=== PATIENT | male | born 1990 | race Caucasian/White ===

== ENCOUNTER 2018-09-20 17:48 | Emergency (ER) | payer MEDICAID ==
[~2018-09-20] VITALS: Ht 180.3 cm; Wt 52.3 kg
[2018-09-20] MEDS ORDERED: phenylephrine 1% (X-tra strg) 15ml nasal spray NS ONE (18:35)
[2018-09-20] MEDS ORDERED: CEPH500C5 PO (18:54)
[2018-09-20] MEDS ORDERED: cephalexin 500mg capsule PO ONE (18:55)
--- NOTE | 2018-09-20 19:20 | NUR ---
Rhino Rocket 5.[address] to right nare, pt continues with some bleeding into his oropharanx and with some nausea. Pt instructed to return in 3 days for removing packing. given 1st dose keflex prior to dc.
[2018-09-20 19:23] VITALS: BP 122/58
== END 2018-09-20 19:25 | disposition home or self-care (01) ==
LOC: ER 17:49
DX: R04.0 Epistaxis (principal); F17.200 Nicotine dependence, unspecified, uncomplicated; Z98.890 Other specified postprocedural states; Z88.2 Allergy status to sulfonamides; Z79.2 Long term (current) use of antibiotics
CPT/HCPCS: 30901; 99284

== ENCOUNTER 2018-09-23 08:04 | Emergency (ER) | payer MEDICAID, OTHER ==
[~2018-09-23] VITALS: Ht 180.3 cm; Wt 55.0 kg
[~2018-09-23 08:04] MED LIST: CEPH500C5 PO
--- NOTE | 2018-09-23 08:20 | NUR ---
PACKING REMOVED, PT INSTRUCTED TO BLOW NOSE GENTLY, INSTRUCTED TO STAY OUT OF THE SUN, REST TODAY AND CUT BACK ON CIGARETTE SMOKING-VERBALZIES UNDERSTANDING
[2018-09-23 08:22] VITALS: BP 154/52
--- NOTE | 2018-09-23 08:26 | NUR ---
NO ABNORMAL BLEEDING OR BLOOD ON KLEENEX AFTER PT CLEANSES/BLOWS NOSE- IN NO ACUTE DISTRESS AT THIS TIME.
== END 2018-09-23 08:27 | disposition home or self-care (01) ==
LOC: ER 08:05
DX: R04.0 Epistaxis (principal); K92.1 Melena; Z48.00 Encounter for change or removal of nonsurgical wound dressing; Z98.890 Other specified postprocedural states; Z88.2 Allergy status to sulfonamides; Z79.2 Long term (current) use of antibiotics
CPT/HCPCS: 99281

== ENCOUNTER 2018-10-10 13:58 | Inpatient (IN) | payer MEDICAID, OTHER ==
[~2018-10-10] VITALS: Ht 180.3 cm; Wt 55.8 kg
[2018-10-10 15:03] LABS: BASOPHILS % (AUTO) 0.2 % (0-1); EOSINOPHILS % (AUTO) 0 % (0-6); HEMATOCRIT 48.1 % (42.0-52.0); HEMOGLOBIN 16.8 g/dl (14.0-17.9); LYMPHOCYTES # (AUTO) 0.7 X10'3 (1.1-4.8); LYMPHOCYTES % (AUTO) 3.4 % (21-51); MEAN CORPUSCULAR HGB CONC 34.9 g/dL (33.0-36.5); MEAN CORPUSCULAR VOLUME 103.2 FL (78-98); MEAN PLATELET VOLUME 6.8 FL (7.4-10.4); MONOCYTES # (AUTO) 0.9 X10'3 (0-0.9); MONOCYTES % (AUTO) 4.9 % (2-12); NEUTROPHILS # (AUTO) 17.4 X10'3 (1.8-7.7); NEUTROPHILS % (AUTO) 91.5 % (42-75); PLATELET COUNT 340 X10'3 (140-440); RED BLOOD COUNT 4.66 X10'6 (4.70-6.10); RED CELL DISTRIBUTION WIDTH 14.5 % (11.5-14.5)
[2018-10-10 15:14] LABS: ALANINE AMINOTRANSFERASE 51 U/L (12-78); ALBUMIN 3.7 G/DL (3.4-5.0); ALBUMIN/GLOBULIN RATIO 1.1 (1.1-1.5); ALKALINE PHOSPHATASE 101 IU/L (46-116); AMYLASE 326 U/L (25-115); ANION GAP 16 (8-16); ASPARTATE AMINO TRANSFERASE 52 U/L (10-37); BILIRUBIN,TOTAL 1.1 MG/DL (0.1-1.0); BLOOD UREA NITROGEN 10 MG/DL (7-18); BUN/CREATININE RATIO 7.6 (5.4-32.0); CALCIUM 8.6 MG/DL (8.5-10.1); CHLORIDE 101 MMOL/L (99-107); CREATININE 1.32 MG/DL (0.60-1.10); GLUCOSE 194 MG/DL (70-104); SODIUM 138 MMOL/L (135-145); TOTAL PROTEIN 7.1 G/DL (6.4-8.2); eGFR 65 ML/MIN
[2018-10-10 15:21] LABS: LIPASE 6596 U/L (73-393)
[2018-10-10] MEDS ORDERED: normal saline 1000ML IV soln IVB ONE ×2 (15:25→16:40)
[2018-10-10] MEDS ORDERED: morphine 4 MG/ML inj SYRINge IV ONE (15:25)
[2018-10-10] MEDS ORDERED: ondansetron/PF 4mg/2ml inj IV ONE (15:30)
[2018-10-10] MEDS ORDERED: OMEP10CA5 PO (16:33)
[2018-10-10] MEDS ORDERED: morphine 10mg/ml inj. IV ONE (16:40)
--- NOTE | 2018-10-10 17:02 | NUR ---
PATIENT UNABLE TO PROVIDE URINE SAMPLE AT THIS TIME.
[2018-10-10] MEDS ORDERED: magnesium Cl slow-release 64mg tablet PO PRN (17:10)
[2018-10-10] MEDS ORDERED: magnesium 4gm in 100ml NS 100 ML IV PRN (17:10)
[2018-10-10] MEDS ORDERED: morphine 2 MG/ML inj. syringe IV PRN (17:10)
[2018-10-10] MEDS ORDERED: potassium CL 10mEq/100ml bag 100 ML IV PRN ×2 (17:10)
[2018-10-10] MEDS ORDERED: magnesium 2GM in 50ml NS 50 ML IV PRN (17:10)
[2018-10-10] MEDS ORDERED: potassium Cl 20 mEq SR tablet PO PRN ×2 (17:10)
[2018-10-10] MEDS: K and/or MAG REPLACEMENT MC SCH (17:10)
[2018-10-10 17:44] LABS: CLARITY,URINE SLIGHTLY CLOUDY (Clear); COLOR,URINE AMBER (Yellow); GLUCOSE, URINE NEGATIVE (Neg); KETONES,URINE 15 mg/dl (Neg); LEUKOCYTE ESTERASE ,URINE NEGATIVE (Neg); OCCULT BLOOD,URINE NEGATIVE (Neg); PH,URINE 6.5 (4.8-8.0); PROTEIN,URINE 100 mg/dl (Neg); UA COLLECTION TYPE URINAL
[2018-10-10 17:45] LABS: NITRITES, URINE NEGATIVE (Neg)
[2018-10-10] MEDS ORDERED: ketorolac tromethamine 15mg/ml inj. IV ONE (17:45)
[2018-10-10 17:51] LABS: HYALINE CASTS 0-3 /LPF (NEGATIVE); MUCUS STRANDS MANY /LPF (Neg); SQUAMOUS EPITHELIAL CELL,UR FEW /LPF (FEW)
[2018-10-10 17:53] LABS: BACTERIA,URINE NONE SEEN /HPF (Neg); RBC,URINE 0-2 /HPF (0-2); RENAL CELLS, URINE FEW /HPF; WBC,URINE 0-4 /HPF (0-4)
[2018-10-10] MEDS ORDERED: NO HOME MEDS (17:55)
[2018-10-10] MEDS: normal saline 1000ml 1,000 ML IV SCH (18:12)
--- NOTE | 2018-10-10 18:42 | NUR ---
Patient in ER . I have received report from Rainer VALENCIA in ER and had the opportunity to ask questions and assume patient care when patient arrives to floor.
[2018-10-10 18:50] VITALS: BP 147/108
--- NOTE | 2018-10-10 19:56 | NUR ---
Pt reports he drinks 4 "16 oz Kael's Hard" per day. Last drink was yesterday. Will monitor closely for withdrawal symptoms of alcohol.
[2018-10-10] MEDS ORDERED: LORazepam 2 mg/ml vial IV PRN (23:00)
[2018-10-10] MEDS ORDERED: haloperidol lactate 5mg/ml inj IM PRN (23:00)
--- NOTE | 2018-10-10 23:00 | NUR ---
2 RN skin check was performed with Aubret Addendum: 10/13/18 at 0641 by Eduardo Narayan RN Evans VALENCIA. However, RN was not able to sign intervention. No skin issues were found on admit.
--- NOTE | 2018-10-10 23:05 | NUR ---
Aleksandra MOURA made aware of pt HR in 150s, and BP of 163/117, as well as out of control pain. Morphine increased and pt placed on alcohol withdrawal protocol, mild. Will continue to monitor patient vitals and pain level. Addendum: 10/10/18 at 2327 by Eduardo Narayan RN These vitals taken shortly after pt returned from bathroom. Will recheck vitals when pt has had a chance to rest for a short while.
[2018-10-10] MEDS: morphine 2 MG/ML inj. syringe IV PRN (23:17)
[2018-10-10 23:56] VITALS: BP 163/117
[2018-10-11 00:19] VITALS: BP 144/116
[2018-10-11] MEDS ORDERED: morphine/NS 5 mg/ml CADD 50 ML IV SCH (00:48)
[2018-10-11] MEDS ORDERED: CADD PCA waste documentation MC PRN (00:50)
[2018-10-11] MEDS ORDERED: naloxone 0.4 mg/ml inj IV PRN (00:50)
[2018-10-11] MEDS: morphine 2 MG/ML inj. syringe IV PRN (01:14)
[2018-10-11] MEDS: morphine/NS 5 mg/ml CADD 50 ML IV SCH ×12 (01:58→22:52)
[2018-10-11] MEDS: normal saline 1000ml 1,000 ML IV SCH ×3 (03:18→16:51)
[2018-10-11 05:39] LABS: BASOPHILS % (AUTO) 0.2 % (0-1); EOSINOPHILS % (AUTO) 0 % (0-6); HEMATOCRIT 46.4 % (42.0-52.0); HEMOGLOBIN 16.4 g/dl (14.0-17.9); LYMPHOCYTES # (AUTO) 1.2 X10'3 (1.1-4.8); LYMPHOCYTES % (AUTO) 9.8 % (21-51); MEAN CORPUSCULAR HGB CONC 35.3 g/dL (33.0-36.5); MEAN PLATELET VOLUME 7.8 FL (7.4-10.4); MONOCYTES # (AUTO) 0.6 X10'3 (0-0.9); MONOCYTES % (AUTO) 4.9 % (2-12); NEUTROPHILS % (AUTO) 85.1 % (42-75); PLATELET COUNT 222 X10'3 (140-440); RED BLOOD COUNT 4.42 X10'6 (4.70-6.10); RED CELL DISTRIBUTION WIDTH 14.7 % (11.5-14.5); WHITE BLOOD COUNT 11.8 X10'3 (4.5-11.0)
[2018-10-11 05:56] LABS: ALANINE AMINOTRANSFERASE 34 U/L (12-78); ALBUMIN 2.5 G/DL (3.4-5.0); ALBUMIN/GLOBULIN RATIO 0.8 (1.1-1.5); ALKALINE PHOSPHATASE 70 IU/L (46-116); AMYLASE 264 U/L (25-115); ANION GAP 11 (8-16); ASPARTATE AMINO TRANSFERASE 36 U/L (10-37); BLOOD UREA NITROGEN 12 MG/DL (7-18); BUN/CREATININE RATIO 12.6 (5.4-32.0); CALCIUM 6.9 MG/DL (8.5-10.1); CHLORIDE 110 MMOL/L (99-107); CREATININE 0.95 MG/DL (0.60-1.10); GLUCOSE 133 MG/DL (70-104); MAGNESIUM 1.2 MG/DL (1.5-2.4); PHOSPHORUS 2.9 MG/DL (2.3-4.5); POTASSIUM 3.6 MMOL/L (3.5-5.1); SODIUM 143 MMOL/L (135-145); TOTAL CARBON DIOXIDE 21.7 MMOL/L (24-32); TOTAL PROTEIN 5.5 G/DL (6.4-8.2); eGFR > 90 ML/MIN
--- NOTE | 2018-10-11 06:30 | NUR ---
Patient in room [facility]. I have received report from Rafael VALENCIA and had the opportunity to ask questions and assume patient care.
--- NOTE | 2018-10-11 06:40 | NUR ---
Problems reprioritized. Patient report given, questions answered & plan of care reviewed with Higinio RN.
[2018-10-11 07:00] VITALS: BP 150/111
[2018-10-11 07:00] LABS: LIPASE 5298 U/L (73-393)
[2018-10-11] MEDS: K and/or MAG REPLACEMENT MC SCH (08:00)
[2018-10-11] MEDS: MVI, adult No.4 with vit. K 10 ML in dextrose 5% water 500ml 500 ML IV SCH ×2 (08:04)
[2018-10-11 11:00] VITALS: BP 127/94
--- NOTE | 2018-10-11 11:25 | NUR ---
Pt with low BMI of 17.2 however no documented method of how current wt of 56 kg was obtained. Per past documented weights pt 52.27 kg 09/20/18 using standing scale and 55 kg 09/23/18 using chair scale. Pt with no edema or significant decrease in muscle strength, currently NPO. Per H&P pt appears well developed. No malnutrition at this time. Will continue to follow. Addendum: 10/11/18 at [address] Amended: Links added.
[2018-10-11] MEDS: WATER IV SCH (13:18)
[2018-10-11] MEDS: THIAMINE IV SCH (13:18)
[2018-10-11] MEDS: FOLIC ACID IV SCH (13:18)
[2018-10-11] MEDS: DEXTROSE 5% IV SCH (13:18)
--- NOTE | 2018-10-11 18:30 | NUR ---
Problems reprioritized. Patient report given, questions answered & plan of care reviewed with Rafael VALENCIA.
--- NOTE | 2018-10-11 18:30 | NUR ---
Patient in room [facility]. I have received report from Higinio VALENCIA and had the opportunity to ask questions and assume patient care.
[2018-10-11 19:00] VITALS: BP 157/107
[2018-10-12] VITALS: BP 156/111
[2018-10-12] MEDS: morphine/NS 5 mg/ml CADD 50 ML IV SCH ×12 (00:49→22:38)
[2018-10-12 05:56] LABS: BASOPHILS % (AUTO) 0.1 % (0-1); EOSINOPHILS % (AUTO) 0.3 % (0-6); HEMATOCRIT 40.1 % (42.0-52.0); HEMOGLOBIN 13.8 g/dl (14.0-17.9); LYMPHOCYTES # (AUTO) 1.2 X10'3 (1.1-4.8); LYMPHOCYTES % (AUTO) 10.8 % (21-51); MEAN CORPUSCULAR HEMOGLOBIN 36.8 PG (27.0-31.0); MEAN CORPUSCULAR HGB CONC 34.5 g/dL (33.0-36.5); MEAN CORPUSCULAR VOLUME 106.8 FL (78-98); MEAN PLATELET VOLUME 7.7 FL (7.4-10.4); MONOCYTES # (AUTO) 0.6 X10'3 (0-0.9); MONOCYTES % (AUTO) 5.8 % (2-12); NEUTROPHILS # (AUTO) 9.1 X10'3 (1.8-7.7); PLATELET COUNT 168 X10'3 (140-440); RED BLOOD COUNT 3.76 X10'6 (4.70-6.10); RED CELL DISTRIBUTION WIDTH 14.3 % (11.5-14.5); WHITE BLOOD COUNT 10.9 X10'3 (4.5-11.0)
--- NOTE | 2018-10-12 06:24 | NUR ---
Problems reprioritized. Patient report given, questions answered & plan of care reviewed with Yohannes VALENCIA.
[2018-10-12 06:29] LABS: ALANINE AMINOTRANSFERASE 23 U/L (12-78); ALBUMIN 2.1 G/DL (3.4-5.0); ALBUMIN/GLOBULIN RATIO 0.6 (1.1-1.5); ALKALINE PHOSPHATASE 58 IU/L (46-116); AMYLASE 152 U/L (25-115); ANION GAP 8 (8-16); ASPARTATE AMINO TRANSFERASE 29 U/L (10-37); BILIRUBIN,TOTAL 0.6 MG/DL (0.1-1.0); BLOOD UREA NITROGEN 13 MG/DL (7-18); BUN/CREATININE RATIO 15.9 (5.4-32.0); CALCIUM 7.1 MG/DL (8.5-10.1); CHLORIDE 108 MMOL/L (99-107); CREATININE 0.82 MG/DL (0.60-1.10); GLUCOSE 98 MG/DL (70-104); MAGNESIUM 3.1 MG/DL (1.5-2.4); PHOSPHORUS 2.4 MG/DL (2.3-4.5); POTASSIUM 4.3 MMOL/L (3.5-5.1); SODIUM 139 MMOL/L (135-145); TOTAL CARBON DIOXIDE 22.7 MMOL/L (24-32); TOTAL PROTEIN 5.5 G/DL (6.4-8.2); eGFR > 90 ML/MIN
--- NOTE | 2018-10-12 06:39 | NUR ---
Patient in room [facility]. I have received report from Rafael VALENCIA and had the opportunity to ask questions and assume patient care.
[2018-10-12 07:01] LABS: LIPASE 2451 U/L (73-393)
[2018-10-12] MEDS: WATER IV SCH (07:05)
[2018-10-12] MEDS: FOLIC ACID IV SCH (07:05)
[2018-10-12] MEDS: DEXTROSE 5% IV SCH (07:05)
[2018-10-12] MEDS: THIAMINE IV SCH (07:05)
[2018-10-12 07:14] VITALS: BP 141/96
[2018-10-12] MEDS: MVI, adult No.4 with vit. K 10 ML in dextrose 5% water 500ml 500 ML IV SCH ×2 (07:51)
[2018-10-12] MEDS: K and/or MAG REPLACEMENT MC SCH (08:00)
[2018-10-12] MEDS: normal saline 1000ml 1,000 ML IV SCH ×2 (09:10→18:25)
[2018-10-12 11:36] VITALS: BP 145/101
[2018-10-12 18:00] VITALS: BP 145/94
--- NOTE | 2018-10-12 18:20 | NUR ---
Patient in room [facility]. I have received report from Higinio VALENCIA and had the opportunity to ask questions and assume patient care.
[2018-10-12 23:39] VITALS: BP 146/100
[2018-10-13] MEDS: morphine/NS 5 mg/ml CADD 50 ML IV SCH ×9 (01:00→17:00)
[2018-10-13] MEDS: normal saline 1000ml 1,000 ML IV SCH (03:36)
[2018-10-13 06:08] LABS: BASOPHILS % (AUTO) 0.3 % (0-1); EOSINOPHILS # (AUTO) 0.1 X10'3 (0-0.9); EOSINOPHILS % (AUTO) 0.6 % (0-6); HEMATOCRIT 35.4 % (42.0-52.0); LYMPHOCYTES # (AUTO) 0.9 X10'3 (1.1-4.8); LYMPHOCYTES % (AUTO) 10.7 % (21-51); MEAN CORPUSCULAR HEMOGLOBIN 36.6 PG (27.0-31.0); MEAN CORPUSCULAR VOLUME 107.5 FL (78-98); MEAN PLATELET VOLUME 7.6 FL (7.4-10.4); MONOCYTES # (AUTO) 0.8 X10'3 (0-0.9); MONOCYTES % (AUTO) 9.7 % (2-12); NEUTROPHILS # (AUTO) 6.4 X10'3 (1.8-7.7); NEUTROPHILS % (AUTO) 78.7 % (42-75); PLATELET COUNT 157 X10'3 (140-440); RED CELL DISTRIBUTION WIDTH 14.7 % (11.5-14.5); WHITE BLOOD COUNT 8.1 X10'3 (4.5-11.0)
--- NOTE | 2018-10-13 06:16 | NUR ---
Patient in room [facility]. I have received report from ERIK Hall and had the opportunity to ask questions and assume patient care.
--- NOTE | 2018-10-13 06:16 | NUR ---
Problems reprioritized. Patient report given, questions answered & plan of care reviewed with Sandra RN.
[2018-10-13 06:39] LABS: ALANINE AMINOTRANSFERASE 21 U/L (12-78); ALBUMIN 1.8 G/DL (3.4-5.0); ALBUMIN/GLOBULIN RATIO 0.5 (1.1-1.5); ALKALINE PHOSPHATASE 63 IU/L (46-116); AMYLASE 84 U/L (25-115); ANION GAP 11 (8-16); ASPARTATE AMINO TRANSFERASE 31 U/L (10-37); BILIRUBIN,TOTAL 0.7 MG/DL (0.1-1.0); BLOOD UREA NITROGEN 7 MG/DL (7-18); BUN/CREATININE RATIO 10.9 (5.4-32.0); CALCIUM 7.5 MG/DL (8.5-10.1); CHLORIDE 105 MMOL/L (99-107); CREATININE 0.64 MG/DL (0.60-1.10); GLUCOSE 62 MG/DL (70-104); LIPASE 825 U/L (73-393); PHOSPHORUS 2.3 MG/DL (2.3-4.5); POTASSIUM 3.6 MMOL/L (3.5-5.1); SODIUM 139 MMOL/L (135-145); TOTAL CARBON DIOXIDE 22.9 MMOL/L (24-32); TOTAL PROTEIN 5.3 G/DL (6.4-8.2); eGFR > 90 ML/MIN
[2018-10-13] MEDS: WATER IV SCH (07:17)
[2018-10-13] MEDS: THIAMINE IV SCH (07:17)
[2018-10-13] MEDS: DEXTROSE 5% IV SCH (07:17)
[2018-10-13] MEDS: FOLIC ACID IV SCH (07:17)
[2018-10-13] MEDS: K and/or MAG REPLACEMENT MC SCH (07:24)
[2018-10-13] MEDS ORDERED: dextrose 50%-water 50ml dispensing syringe IV ONE (07:25)
[2018-10-13] MEDS: dextrose 5%-normal saline 1,000 ML IV SCH ×2 (07:59→17:03)
[2018-10-13 08:00] VITALS: BP 154/104
[2018-10-13] MEDS: MVI, adult No.4 with vit. K 10 ML in dextrose 5% water 500ml 500 ML IV SCH ×2 (08:03)
[2018-10-13 12:00] VITALS: BP 152/104
--- NOTE | 2018-10-13 18:07 | NUR ---
Problems reprioritized. Patient report given, questions answered & plan of care reviewed with ERIK Nayak.
--- NOTE | 2018-10-13 18:49 | NUR ---
Patient in room [facility]. I have received report from BERNY VALENCIA and had the opportunity to ask questions and assume patient care. Addendum: 10/13/18 at 1849 by Malini Noriega RN Amended: Links added.
--- NOTE | 2018-10-13 19:35 | NUR ---
pt medicated for c/o abd pain 07/29 at this time.
[2018-10-13] MEDS: morphine 2 MG/ML inj. syringe IV PRN ×2 (19:40→22:50)
[2018-10-13 20:00] VITALS: BP 148/108
--- NOTE | 2018-10-13 22:52 | NUR ---
pt medicated for pain with 2mg of morphine abd 07/29. at this time.
[2018-10-14] VITALS: BP 156/104
--- NOTE | 2018-10-14 00:40 | NUR ---
pt resting eyes closed no s&s of distress at this time.
--- NOTE | 2018-10-14 02:40 | NUR ---
resting eyes closed without changes.
[2018-10-14] MEDS: dextrose 5%-normal saline 1,000 ML IV SCH ×3 (03:19→17:24)
[2018-10-14] MEDS: morphine 2 MG/ML inj. syringe IV PRN ×5 (03:20→19:15)
--- NOTE | 2018-10-14 03:27 | NUR ---
pt awoke iv fluids changed and medicated for pain with iv morphine at this time.
--- NOTE | 2018-10-14 05:27 | NUR ---
pt awake states "having liquid stool that is now smelling like his throw up",bile like. pt stated he'd love to be able to have a popsicle today.
[2018-10-14 06:08] LABS: BASOPHILS % (AUTO) 0.2 % (0-1); EOSINOPHILS # (AUTO) 0.1 X10'3 (0-0.9); EOSINOPHILS % (AUTO) 0.6 % (0-6); HEMATOCRIT 33.9 % (42.0-52.0); HEMOGLOBIN 11.9 g/dl (14.0-17.9); LYMPHOCYTES # (AUTO) 1.1 X10'3 (1.1-4.8); LYMPHOCYTES % (AUTO) 11.9 % (21-51); MEAN CORPUSCULAR HGB CONC 35.1 g/dL (33.0-36.5); MEAN CORPUSCULAR VOLUME 105.5 FL (78-98); MONOCYTES # (AUTO) 1.7 X10'3 (0-0.9); MONOCYTES % (AUTO) 18.8 % (2-12); NEUTROPHILS # (AUTO) 6.3 X10'3 (1.8-7.7); NEUTROPHILS % (AUTO) 68.5 % (42-75); PLATELET COUNT 193 X10'3 (140-440); RED BLOOD COUNT 3.21 X10'6 (4.70-6.10); RED CELL DISTRIBUTION WIDTH 14.3 % (11.5-14.5); WHITE BLOOD COUNT 9.2 X10'3 (4.5-11.0)
--- NOTE | 2018-10-14 06:18 | NUR ---
Problems reprioritized. Patient report given, questions answered & plan of care reviewed with Sandra Cespedes. Addendum: 10/14/18 at 0619 by Malini Noriega RN Amended: Links added.
[2018-10-14 06:27] LABS: ALANINE AMINOTRANSFERASE 18 U/L (12-78); ALBUMIN 1.8 G/DL (3.4-5.0); ALBUMIN/GLOBULIN RATIO 0.5 (1.1-1.5); ALKALINE PHOSPHATASE 75 IU/L (46-116); AMYLASE 79 U/L (25-115); ANION GAP 9 (8-16); ASPARTATE AMINO TRANSFERASE 22 U/L (10-37); BILIRUBIN,TOTAL 0.6 MG/DL (0.1-1.0); BLOOD UREA NITROGEN 2 MG/DL (7-18); BUN/CREATININE RATIO 4.4 (5.4-32.0); CALCIUM 7.8 MG/DL (8.5-10.1); CHLORIDE 103 MMOL/L (99-107); CREATININE 0.45 MG/DL (0.60-1.10); GLUCOSE 111 MG/DL (70-104); LIPASE 543 U/L (73-393); MAGNESIUM 1.8 MG/DL (1.5-2.4); PHOSPHORUS 2.4 MG/DL (2.3-4.5); SODIUM 138 MMOL/L (135-145); TOTAL CARBON DIOXIDE 25.6 MMOL/L (24-32); TOTAL PROTEIN 5.6 G/DL (6.4-8.2); eGFR > 90 ML/MIN
[2018-10-14 06:32] LABS: POTASSIUM 2.9 MMOL/L (3.5-5.1)
[2018-10-14 07:00] VITALS: BP 159/97
[2018-10-14] MEDS ORDERED: magnesium Cl slow-release 64mg tablet PO PRN (07:15)
[2018-10-14] MEDS ORDERED: potassium Cl 20 mEq SR tablet PO PRN ×2 (07:15)
[2018-10-14] MEDS ORDERED: magnesium 4gm in 100ml NS 100 ML IV PRN (07:15)
[2018-10-14 07:22] LABS: PLATELET ESTIMATE NORMAL; TOTAL CELLS COUNTED 100
[2018-10-14] MEDS: DEXTROSE 5% IV SCH (07:28)
[2018-10-14] MEDS: FOLIC ACID IV SCH (07:28)
[2018-10-14] MEDS: THIAMINE IV SCH (07:28)
[2018-10-14] MEDS: ESOMEPRAZOLE 40 MG VIAL IV SCH (07:28)
[2018-10-14] MEDS: WATER IV SCH (07:28)
[2018-10-14] MEDS: ondansetron/PF 4mg/2ml inj IV PRN (07:36)
[2018-10-14] MEDS: MVI, adult No.4 with vit. K 10 ML in dextrose 5% water 500ml 500 ML IV SCH ×2 (08:43)
[2018-10-14] MEDS: potassium CL 10mEq/100ml bag 100 ML IV PRN ×8 (08:44→19:19)
[2018-10-14] MEDS: K and/or MAG REPLACEMENT MC SCH (08:53)
[2018-10-14 11:49] VITALS: BP 139/89
--- NOTE | 2018-10-14 18:25 | NUR ---
Patient in room [facility]. I have received report from ERIK Ochoa and had the opportunity to ask questions and assume patient care.
--- NOTE | 2018-10-14 18:48 | NUR ---
Problems reprioritized. Patient report given, questions answered & plan of care reviewed with CHRISTY VALENCIA.
[2018-10-14 20:00] VITALS: BP 159/101
[2018-10-15] VITALS: BP 155/105
[2018-10-15] MEDS: morphine 2 MG/ML inj. syringe IV PRN ×7 (00:05→23:59)
[2018-10-15 05:30] LABS: BASOPHILS % (AUTO) 0.2 % (0-1); EOSINOPHILS # (AUTO) 0.1 X10'3 (0-0.9); EOSINOPHILS % (AUTO) 1.2 % (0-6); HEMATOCRIT 34.6 % (42.0-52.0); LYMPHOCYTES % (AUTO) 9.4 % (21-51); MEAN CORPUSCULAR HEMOGLOBIN 35.9 PG (27.0-31.0); MEAN CORPUSCULAR HGB CONC 34.6 g/dL (33.0-36.5); MEAN CORPUSCULAR VOLUME 103.9 FL (78-98); MEAN PLATELET VOLUME 7.2 FL (7.4-10.4); MONOCYTES # (AUTO) 2.3 X10'3 (0-0.9); MONOCYTES % (AUTO) 21.8 % (2-12); NEUTROPHILS # (AUTO) 7.1 X10'3 (1.8-7.7); NEUTROPHILS % (AUTO) 67.4 % (42-75); PLATELET COUNT 273 X10'3 (140-440); RED BLOOD COUNT 3.33 X10'6 (4.70-6.10); RED CELL DISTRIBUTION WIDTH 14.4 % (11.5-14.5); WHITE BLOOD COUNT 10.5 X10'3 (4.5-11.0)
[2018-10-15 05:39] LABS: ALANINE AMINOTRANSFERASE 25 U/L (12-78); ALBUMIN 1.8 G/DL (3.4-5.0); ALBUMIN/GLOBULIN RATIO 0.5 (1.1-1.5); ALKALINE PHOSPHATASE 77 IU/L (46-116); AMYLASE 90 U/L (25-115); ANION GAP 12 (8-16); ASPARTATE AMINO TRANSFERASE 31 U/L (10-37); BILIRUBIN,TOTAL 0.6 MG/DL (0.1-1.0); BLOOD UREA NITROGEN 2 MG/DL (7-18); BUN/CREATININE RATIO 4.3 (5.4-32.0); CALCIUM 8.3 MG/DL (8.5-10.1); CHLORIDE 102 MMOL/L (99-107); CREATININE 0.47 MG/DL (0.60-1.10); GLUCOSE 96 MG/DL (70-104); LIPASE 575 U/L (73-393); MAGNESIUM 1.7 MG/DL (1.5-2.4); PHOSPHORUS 2.8 MG/DL (2.3-4.5); SODIUM 138 MMOL/L (135-145); TOTAL CARBON DIOXIDE 24.2 MMOL/L (24-32); TOTAL PROTEIN 5.7 G/DL (6.4-8.2); eGFR > 90 ML/MIN
--- NOTE | 2018-10-15 06:09 | NUR ---
Problems reprioritized. Patient report given, questions answered & plan of care reviewed with ERIK Squires.
--- NOTE | 2018-10-15 06:11 | NUR ---
Patient in room [facility]. I have received report from Evans VALENCIA and had the opportunity to ask questions and assume patient care.
--- NOTE | 2018-10-15 06:51 | NUR ---
Patient refused having a secondary peripheral IV catheter so that to avoid delay of IV medications like KCL and banana bag.
[2018-10-15 07:00] VITALS: BP 146/103
--- NOTE | 2018-10-15 07:05 | NUR ---
Reported critical K of 3.[address] Davis. Patient already on K replacement protocol
[2018-10-15] MEDS: THIAMINE IV SCH (07:15)
[2018-10-15] MEDS: FOLIC ACID IV SCH (07:15)
[2018-10-15] MEDS: WATER IV SCH (07:15)
[2018-10-15] MEDS: DEXTROSE 5% IV SCH (07:15)
[2018-10-15] MEDS: ESOMEPRAZOLE 40 MG VIAL IV SCH (07:56)
[2018-10-15] MEDS: K and/or MAG REPLACEMENT MC SCH (08:00)
[2018-10-15 09:09] LABS: PLATELET ESTIMATE NORMAL; TOTAL CELLS COUNTED 100
[2018-10-15] MEDS: MVI, adult No.4 with vit. K 10 ML in dextrose 5% water 500ml 500 ML IV SCH ×2 (09:10)
[2018-10-15 09:11] LABS: TOXIC GRANULATION 1+
--- NOTE | 2018-10-15 10:15 | NUR ---
Patient had a shower today.
[2018-10-15 11:00] VITALS: BP 145/93
[2018-10-15] MEDS ORDERED: furosemide 20 MG/2 ML vial IV ONE (12:40)
[2018-10-15] MEDS ORDERED: iohexol 300mg/ml 100ml inj. ONE (13:05)
--- NOTE | 2018-10-15 14:20 | NUR ---
Patient O2 sat 97% on room air, lung sounds clear upon auscultation. Patient stated that he start feeling short of breath when he start feeling the pain in his abdomen. K today is 3.0, so far received KCL 40 mEq PO this am
--- NOTE | 2018-10-15 14:22 | NUR ---
Patient went to CT scan
[2018-10-15] MEDS: potassium CL 10mEq/100ml bag 100 ML IV PRN ×4 (14:58→22:18)
--- NOTE | 2018-10-15 15:34 | NUR ---
Initial: Pt admit with acute pancreatitis likely Etoh related per H&P. Pt receiving banana bag d/t reported Etoh use. Patient's diet just advance to clear liquid this morning. Pt seen at bedside provided with written and verbal pancreatitis education with RD contact information. Noted that ordered PPN/TPN for pt d/t c/o abdominal pain with acute pancreatitis. D/w recommendation for Corpak placement with post pyloric feeding which is appropriate for acute pancreatitis, both MD and pt agreed. has ordered Corpak placement. Pt currently in CT. TF recommendations below for once Corpak placed and MD boone to start TF. Pt requests to continue clear liquid diet with TF, notified . LBM 10/15. Will continue to follow. Recommendations: 1) Advance to low fat diet as medically indicated 2) Once Corpak placed and MD boone to start feeding, recommend continuous TF of Vital AF to begin at 20 mL/hr and advance by 20 mL Q8H as tolerated to goal rate of 65 mL/hr to provide: total volume of 1560 mL/day, 1872 kcal, 117 g protein, and 1264 mL water 3) Once TF, 100 mL water flush Q6H 4) Prealbumin q / 5) Daily weights 6) Continue banana bag given hx Etoh abuse Addendum: 10/15/18 at [address] Amended: Links added.
[2018-10-15] MEDS: ondansetron/PF 4mg/2ml inj IV PRN (15:37)
--- NOTE | 2018-10-15 15:45 | NUR ---
Corpak tube inserted into the patient's right nares, patient was nauseous after the tube placed. Zofran IV given. KUB ordered to confirm placement
--- NOTE | 2018-10-15 16:45 | NUR ---
BRIDGETTEB result relayed to Dr. Davis. I also read to her the dietitian's recommendations such as tube feeding formula, rate, water flush amount and prealbumin every Sunday and - MD okayed the recommendations. I also clarify with the MD the Lasix order since patient has already low K and we are still trying to replace it, Dr. Davis said we can hold it
--- NOTE | 2018-10-15 17:11 | NUR ---
Instructed patient to turn on the right side. KUB result shows the tip projecting over the right hemiabdomen, thought to be in the distal stomach or a portion of duodenum. Charge nurse Samra aware, she advised me to have another KUB done at 17:30 to reevaluate the position
--- NOTE | 2018-10-15 17:50 | NUR ---
Yellow drainage leaking out from the Corpak tube. KUB done, awaiting result
--- NOTE | 2018-10-15 17:59 | NUR ---
Paged Dr. Davis regarding patient's reported diarrhea, asking if we can start may be imodium
--- NOTE | 2018-10-15 18:00 | NUR ---
Patient in room [facility]. I have received report from ERIK Squires and had the opportunity to ask questions and assume patient care.
[2018-10-15] MEDS ORDERED: loperamide 2mg capsule PO PRN (18:20)
--- NOTE | 2018-10-15 18:43 | NUR ---
Problems reprioritized. Patient report given, questions answered & plan of care reviewed with Garett VALENCIA.
[2018-10-15 20:00] VITALS: BP 154/104
[2018-10-16] VITALS: BP 155/107
[2018-10-16] MEDS: morphine 2 MG/ML inj. syringe IV PRN ×6 (03:26→21:35)
[2018-10-16 05:34] LABS: MAGNESIUM 1.7 MG/DL (1.5-2.4); POTASSIUM 3.3 MMOL/L (3.5-5.1)
--- NOTE | 2018-10-16 06:39 | NUR ---
Patient in room [facility]. I have received report from Garett VALENCIA and had the opportunity to ask questions and assume patient care.
[2018-10-16 07:00] VITALS: BP 150/100
[2018-10-16] MEDS: ESOMEPRAZOLE 40 MG VIAL IV SCH (07:48)
[2018-10-16] MEDS: dextrose 5%-normal saline 1,000 ML IV SCH (07:50)
[2018-10-16] MEDS: potassium CL 10mEq/100ml bag 100 ML IV PRN ×4 (07:51→21:36)
[2018-10-16] MEDS: K and/or MAG REPLACEMENT MC SCH (08:00)
[2018-10-16] MEDS: MVI, adult No.4 with vit. K 10 ML in dextrose 5% water 500ml 500 ML IV SCH ×2 (08:06)
--- NOTE | 2018-10-16 10:10 | NUR ---
Abdominal Xray (KUB) done today shows : There is a Corpak tube coursing below the left hemidiaphragm. The tip projects to the right of the L3 vertebra which is most likely in the proximal duodenum. Charge nurse Lisa reviewed this as well and called ICU Nurse Kimmy who looked at it and the film. Per Kimmy RN, the image looks good and the report is satisfactory
[2018-10-16 11:00] VITALS: BP 135/83
--- NOTE | 2018-10-16 11:00 | NUR ---
Tube feeding Vital AF was started at 20 ml/hr. Lung sounds were clear upon auscultation. Stylet was removed prior to starting tube feeding.
--- NOTE | 2018-10-16 11:36 | NUR ---
TF consult: Corpak has been placed, KUB confirms placement likely in the proximal duodenum. D/w RN recommendations for placement to be placed in the proximal jejunum in order to decrease pancreas stimulation. RN has placed TF diet order per RD recommendations and d/c'ed clear liquid diet per MD request. Will continue to follow. Recommendations: 1) Advance to low fat diet as medically indicated 2) Once Corpak confirmed in the proximal jejunum and okays to start feeding, recommend continuous TF of Vital AF to begin at 20 mL/hr and advance by 20 mL Q8H as tolerated to goal rate of 65 mL/hr to provide: total volume of 1560 mL/day, 1872 kcal, 117 g protein, and 1264 mL water 3) Once TF, 100 mL water flush Q6H 4) Prealbumin q / 5) Daily weights 6) Continue banana bag given hx Etoh abuse Addendum: 10/16/18 at [address] Amended: Links added.
[2018-10-16] MEDS: FOLIC ACID IV SCH (12:40)
[2018-10-16] MEDS: WATER IV SCH (12:40)
[2018-10-16] MEDS: DEXTROSE 5% IV SCH (12:40)
[2018-10-16] MEDS: THIAMINE IV SCH (12:40)
[2018-10-16] MEDS ORDERED: POTASSIUM BICARB 20meq eff tab 20 MEQ TABLET.EFF CORPAK PRN ×3 (13:59→14:05)
[2018-10-16] MEDS ORDERED: potassium Cl 20 mEq SR tablet PO PRN (14:00)
[2018-10-16] MEDS ORDERED: LOPERAMIDE 2 mg/10 ml oral solution UD CORPAK PRN (14:05)
--- NOTE | 2018-10-16 18:00 | NUR ---
Tried to flush the Corpak tube but as soon as I flush the tube with water patient start gagging, nauseous, and appears uncomfortable so I stopped doing it. I was only able to flush the tube with about 10ml of water.
--- NOTE | 2018-10-16 18:30 | NUR ---
Patient in room [facility]. I have received report from ERIK Squires and had the opportunity to ask questions and assume patient care.
--- NOTE | 2018-10-16 18:56 | NUR ---
Problems reprioritized. Patient report given, questions answered & plan of care reviewed with Garett VALENCIA.
--- NOTE | 2018-10-16 19:52 | NUR ---
pt gags when flushed only able to vance 20ml, started gagging. states feeling nauseated. tf residual 50ml. started vomiting after water flushed. tf stopped at this time. Addendum: 10/16/18 at 1953 by Ne Zurita RN Amended: Links added.
[2018-10-16 20:00] VITALS: BP 151/77
--- NOTE | 2018-10-16 21:50 | NUR ---
tf RESTARTED AT 20ML/HR
--- NOTE | 2018-10-16 22:43 | NUR ---
pt tolerating 20ml/hr TF well still. will continue to monitor
[2018-10-17] VITALS: BP 146/94
[2018-10-17] MEDS: morphine 2 MG/ML inj. syringe IV PRN ×3 (01:43→10:18)
--- NOTE | 2018-10-17 02:05 | NUR ---
conferred with pt about plan of care. pt tolerating 20ml/hr tube feed fairly, no episodes of n/v. did not want corpak flushed with water. will keep pt at 20ml/hr and continue to monitor
[2018-10-17 05:04] LABS: MAGNESIUM 1.8 MG/DL (1.5-2.4); PREALBUMIN 7.5 MG/DL (19-36)
[2018-10-17 06:00] VITALS: BP_SYST 133; BP_SYST 146; BP_DIAS 88; BP_DIAS 97
--- NOTE | 2018-10-17 06:47 | NUR ---
Problems reprioritized. Patient report given, questions answered & plan of care reviewed with ERIK Ren.
[2018-10-17] MEDS: DEXTROSE 5% IV SCH (07:25)
[2018-10-17] MEDS: MVI, adult No.4 with vit. K 10 ML in dextrose 5% water 500ml 500 ML IV SCH ×2 (07:25)
[2018-10-17] MEDS: WATER IV SCH (07:25)
[2018-10-17] MEDS: FOLIC ACID IV SCH (07:25)
[2018-10-17] MEDS: THIAMINE IV SCH (07:25)
[2018-10-17] MEDS: ESOMEPRAZOLE 40 MG VIAL IV SCH (07:25)
[2018-10-17] MEDS: K and/or MAG REPLACEMENT MC SCH (08:00)
--- NOTE | 2018-10-17 08:30 | NUR ---
PATIENT REFUSES TF WATER FLUSHES SAYS IT MAKES HIM NAUSEOUS
[2018-10-17 08:47] LABS: POTASSIUM 3.3 MMOL/L (3.5-5.1)
[2018-10-17] MEDS ORDERED: magnesium 4gm in 100ml NS 100 ML IV PRN (09:35)
[2018-10-17] MEDS: potassium CL 10mEq/100ml bag 100 ML IV PRN ×4 (09:56→23:20)
[2018-10-17 11:15] VITALS: BP 146/97
[2018-10-17] MEDS ORDERED: HYDROmorphone 1 mg/ml syringe IV ONE (11:45)
--- NOTE | 2018-10-17 12:25 | NUR ---
CHANGED TUBE FEEDING + TUBING
--- NOTE | 2018-10-17 12:30 | NUR ---
INCREASED TUBE FEED RATE TO 25/HOUR
[2018-10-17] MEDS ORDERED: pantoprazole 40 MG vial IV SCH (14:56)
--- NOTE | 2018-10-17 16:45 | NUR ---
PATIENT REFUSED PICC NURSE TO PLACE NEW IV RIGHT UPPER ARM IV IS WORKING WELL, AND NOT INFILTRATED, HOWEVER PATIENT SAYS IT IS "TENDER". RN PAGED PICC NURSE TO COME PLACE A NEW ONE TO BE SAFE INCASE THE RIGHT ARM GOES BAD, HOWEVER PATIENT IS REFUSING.
--- NOTE | 2018-10-17 18:30 | NUR ---
Patient in room [facility]. I have received report from Gela VALENCIA and had the opportunity to ask questions and assume patient care.
[2018-10-17 19:00] VITALS: BP 145/89
[2018-10-17] MEDS: HYDROmorphone 1 mg/ml syringe IV PRN ×2 (19:35→23:16)
--- NOTE | 2018-10-17 20:00 | NUR ---
Patient refused to allow for flushing NG tube at this time, Suggested that we would re-visit this when patient not having so much pain. Addendum: 10/17/18 at 2356 by Beba Musa RN Amended: Links added.
[2018-10-17] MEDS: dextrose 5%-normal saline 1,000 ML IV SCH (23:03)
[2018-10-18] VITALS: BP 134/87
[2018-10-18] MEDS: HYDROmorphone 1 mg/ml syringe IV PRN ×5 (04:20→20:32)
[2018-10-18] MEDS: potassium CL 10mEq/100ml bag 100 ML IV PRN (04:21)
--- NOTE | 2018-10-18 06:54 | NUR ---
Problems reprioritized. Patient report given, questions answered & plan of care reviewed with Evie VALENCIA. Patient would not allow for any free water flush during the NOC shift.
[2018-10-18 07:12] VITALS: BP 131/79
[2018-10-18] MEDS: FOLIC ACID IV SCH (07:31)
[2018-10-18] MEDS: DEXTROSE 5% IV SCH (07:31)
[2018-10-18] MEDS: WATER IV SCH (07:31)
[2018-10-18] MEDS: THIAMINE IV SCH (07:31)
[2018-10-18] MEDS: K and/or MAG REPLACEMENT MC SCH (08:00)
[2018-10-18] MEDS: MVI, adult No.4 with vit. K 10 ML in dextrose 5% water 500ml 500 ML IV SCH ×2 (08:03)
--- NOTE | 2018-10-18 09:32 | NUR ---
PT REFUSES 100ML FLUSH THROUGH CORPAC, SAYS IT MAKES HIM NAUSEAS. WILL TALK TO DR ABOUT THIS AND SEE IF SHE WANTS TO INCREASE FLUIDS IV
[2018-10-18 09:53] LABS: BASOPHILS # (AUTO) 0.1 X10'3 (0-0.2); EOSINOPHILS # (AUTO) 0.3 X10'3 (0-0.9); EOSINOPHILS % (AUTO) 0.9 % (0-6); PLATELET COUNT 711 X10'3 (140-440)
[2018-10-18 09:55] LABS: BASOPHILS % (AUTO) 0.2 % (0-1); HEMATOCRIT 36.6 % (42.0-52.0); HEMOGLOBIN 12.4 g/dl (14.0-17.9); LYMPHOCYTES # (AUTO) 1.9 X10'3 (1.1-4.8); LYMPHOCYTES % (AUTO) 6.4 % (21-51); MEAN CORPUSCULAR HEMOGLOBIN 34.9 PG (27.0-31.0); MEAN CORPUSCULAR HGB CONC 33.8 g/dL (33.0-36.5); MEAN CORPUSCULAR VOLUME 103.4 FL (78-98); MEAN PLATELET VOLUME 6.8 FL (7.4-10.4); MONOCYTES # (AUTO) 2.7 X10'3 (0-0.9); MONOCYTES % (AUTO) 9.3 % (2-12); NEUTROPHILS # (AUTO) 24.2 X10'3 (1.8-7.7); NEUTROPHILS % (AUTO) 83.2 % (42-75); RED BLOOD COUNT 3.54 X10'6 (4.70-6.10); RED CELL DISTRIBUTION WIDTH 15.2 % (11.5-14.5)
[2018-10-18] MEDS: dextrose 5%-normal saline 1,000 ML IV SCH (10:00)
[2018-10-18 10:09] LABS: ALANINE AMINOTRANSFERASE 58 U/L (12-78); ALBUMIN 1.9 G/DL (3.4-5.0); ALBUMIN/GLOBULIN RATIO 0.4 (1.1-1.5); ALKALINE PHOSPHATASE 136 IU/L (46-116); ANION GAP 10 (8-16); ASPARTATE AMINO TRANSFERASE 61 U/L (10-37); BILIRUBIN,TOTAL 0.2 MG/DL (0.1-1.0); BLOOD UREA NITROGEN 7 MG/DL (7-18); BUN/CREATININE RATIO 14.6 (5.4-32.0); CALCIUM 8.7 MG/DL (8.5-10.1); CHLORIDE 101 MMOL/L (99-107); CREATININE 0.48 MG/DL (0.60-1.10); GLUCOSE 129 MG/DL (70-104); LIPASE 529 U/L (73-393); POTASSIUM 3.4 MMOL/L (3.5-5.1); SODIUM 136 MMOL/L (135-145); TOTAL CARBON DIOXIDE 25.3 MMOL/L (24-32); TOTAL PROTEIN 6.7 G/DL (6.4-8.2); eGFR > 90 ML/MIN
--- NOTE | 2018-10-18 10:16 | NUR ---
Pt WBC 29.1. Dr Ace aware.
--- NOTE | 2018-10-18 10:21 | NUR ---
PT HAS ONLY VOIDED 50ML TODAY ON MY SHIFT. DR CHE AWARE. 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
[2018-10-18 11:00] VITALS: BP 132/87
--- NOTE | 2018-10-18 11:01 | NUR ---
DR MARTINEZ HAS SEEN PT, PT WILL GO TO CT TO CHECK PLACEMENT OF CORPAC SOON. TUBE FEED STOPPED FOR NOW PER DR MARTINEZ AND DR CHE. POSSIBLE TRANSFER TO ICU PER DR MARTINEZ, DR CHE WILL LOOK AT NEW IMAGING BEFORE DECIDING ON TRANSFER. FAMILY AT BEDSIDE.
--- NOTE | 2018-10-18 11:04 | NUR ---
JOE TO Kimberly GRANT AND D5NS PER PHARMACY
[2018-10-18 11:06] LABS: PLATELET ESTIMATE INCREASED; TOTAL CELLS COUNTED 100; TOXIC GRANULATION 3+
[2018-10-18 11:07] LABS: POLYCHROMASIA 1+
[2018-10-18] MEDS: piperacillin/tazo 3.375gm/50ml 50 ML IV SCH ×2 (11:16→17:33)
[2018-10-18] MEDS ORDERED: iohexol 300mg/ml 100ml inj. ONE (11:53)
--- NOTE | 2018-10-18 14:24 | NUR ---
PT UNABLE TO TOLERATE CORPAC FLUSHES, FLUSHED 30ML PRIOR TO CT SCAN AND HE VOMITED INSTANTLY, CHECKING PLACEMENT.
[2018-10-18] MEDS ORDERED: Potassium Cl 40 MEQ in NS 500 ML IV ONE (14:40)
[2018-10-18] MEDS ORDERED: piperacillin/tazo 3.375gm/50ml 50 ML IV SCH ×2 (16:00)
--- NOTE | 2018-10-18 16:35 | NUR ---
CORPAC DC'D, PATIENT TOOK IT OUT HIMSELF AFTER WE TALKED ABOUT DR WANTING TO DC IT BEFORE I CAME BACK TO DO IT. HE APPEARS TO HAVE TOLERATED IT WELL.
--- NOTE | 2018-10-18 17:11 | NUR ---
Reassessment: Pt s/p CT today with reports of confirmation that Corpak was placed in the third portion of duodenum. RD had recommended to place Corpak in jejunum past the Ligament of Treitz d/t studies reporting inhibition of pancreatic secretions compared to PN when tube is placed 40-60 cm beyond the Ligament of Treitz. Pt pulled out Corpak after d/w MD regarding discontinuing TF. Pt to remain NPO with D5 at 75 mL/hr at this time per MD. Prior to discontinuation, TF had not reached recommended goal rate and was only running at 25 mL/hr not meeting nutrient needs and with no fluid flushes as pt refused r/t causing nausea. Given unsuccessful EN resulting in poor nutrition x 8 days, pt would benefit from PN. [facility] 10/17. Will continue to follow closely. Recommendations: 1) Advance to low fat diet as medically indicated 2) Pt would likely benefit from PN given poor nutrition x 8 days 6) Continue banana bag given hx Etoh abuse Addendum: 10/18/18 at [address] Amended: Links added.
--- NOTE | 2018-10-18 18:40 | NUR ---
Patient in room [facility]. I have received report from Evie VALENCIA and had the opportunity to ask questions and assume patient care.
--- NOTE | 2018-10-18 18:50 | NUR ---
Problems reprioritized. Patient report given, questions answered & plan of care reviewed with Beba VALENCIA.
[2018-10-18 19:00] VITALS: BP 134/82
[2018-10-18] MEDS: pantoprazole 40 MG vial IV SCH (20:32)
[2018-10-19] VITALS: BP 132/78
[2018-10-19] MEDS: HYDROmorphone 1 mg/ml syringe IV PRN ×4 (00:16→22:38)
[2018-10-19] MEDS: piperacillin/tazo 3.375gm/50ml 50 ML IV SCH ×3 (00:35→16:14)
[2018-10-19] MEDS: dextrose 5%-normal saline 1,000 ML IV SCH ×2 (03:57→17:31)
--- NOTE | 2018-10-19 06:50 | NUR ---
Problems reprioritized. Patient report given, questions answered & plan of care reviewed with Shaw VALENCIA.
--- NOTE | 2018-10-19 06:58 | NUR ---
Patient in room [facility]. I have received report from Beba VALENCIA and had the opportunity to ask questions and assume patient care.
[2018-10-19 07:00] VITALS: BP 127/79
[2018-10-19] MEDS: pantoprazole 40 MG vial IV SCH ×2 (07:33→22:30)
[2018-10-19] MEDS: WATER IV SCH (07:40)
[2018-10-19] MEDS: FOLIC ACID IV SCH (07:40)
[2018-10-19] MEDS: DEXTROSE 5% IV SCH (07:40)
[2018-10-19] MEDS: THIAMINE IV SCH (07:40)
[2018-10-19] MEDS: K and/or MAG REPLACEMENT MC SCH (08:00)
--- NOTE | 2018-10-19 08:00 | NUR ---
Encouraged patient to ambulate frequently to prevent complication like blood clot. Patient verbalized understanding of all instructions made
[2018-10-19 10:12] LABS: BASOPHILS # (AUTO) 0.1 X10'3 (0-0.2); BASOPHILS % (AUTO) 0.3 % (0-1); EOSINOPHILS # (AUTO) 0.2 X10'3 (0-0.9); LYMPHOCYTES # (AUTO) 1.9 X10'3 (1.1-4.8); MONOCYTES # (AUTO) 2.1 X10'3 (0-0.9)
[2018-10-19 10:13] LABS: HEMATOCRIT 32.7 % (42.0-52.0); HEMOGLOBIN 11.2 g/dl (14.0-17.9); LYMPHOCYTES % (AUTO) 8.1 % (21-51); MEAN CORPUSCULAR HEMOGLOBIN 35.7 PG (27.0-31.0); MEAN CORPUSCULAR HGB CONC 34.3 g/dL (33.0-36.5); MEAN PLATELET VOLUME 6.9 FL (7.4-10.4); NEUTROPHILS # (AUTO) 18.9 X10'3 (1.8-7.7); NEUTROPHILS % (AUTO) 81.6 % (42-75); PLATELET COUNT 736 X10'3 (140-440); RED BLOOD COUNT 3.15 X10'6 (4.70-6.10); RED CELL DISTRIBUTION WIDTH 14.8 % (11.5-14.5); WHITE BLOOD COUNT 23.2 X10'3 (4.5-11.0)
[2018-10-19 10:23] LABS: ALANINE AMINOTRANSFERASE 65 U/L (12-78); ALBUMIN 1.8 G/DL (3.4-5.0); ALBUMIN/GLOBULIN RATIO 0.4 (1.1-1.5); ALKALINE PHOSPHATASE 135 IU/L (46-116); ANION GAP 9 (8-16); ASPARTATE AMINO TRANSFERASE 60 U/L (10-37); BILIRUBIN,TOTAL 0.2 MG/DL (0.1-1.0); BLOOD UREA NITROGEN 4 MG/DL (7-18); BUN/CREATININE RATIO 8.7 (5.4-32.0); CALCIUM 8.4 MG/DL (8.5-10.1); CHLORIDE 103 MMOL/L (99-107); CREATININE 0.46 MG/DL (0.60-1.10); GLUCOSE 97 MG/DL (70-104); LIPASE 453 U/L (73-393); POTASSIUM 3.6 MMOL/L (3.5-5.1); SODIUM 137 MMOL/L (135-145); TOTAL CARBON DIOXIDE 24.9 MMOL/L (24-32); TOTAL PROTEIN 6.2 G/DL (6.4-8.2); eGFR > 90 ML/MIN
[2018-10-19 11:00] VITALS: BP 133/92
[2018-10-19] MEDS ORDERED: HYDROmorphone 1 mg/ml syringe IV PRN (12:45)
--- NOTE | 2018-10-19 13:42 | NUR ---
Reassessment: Per MD notes pt feeling much better today and pain is controlled on current pain meds. Pt remains NPO at this time with dext/NS running at 75 mL/hr. Lipase down to 453 today from 529 yesterday. Per verbal conversation with RN, pt agrees to PN if needed however would not like EN. No current PN orders at this time. Will continue to follow closely. Recommendations: 1) Advance to low fat diet as medically indicated 2) Pt would likely benefit from PN given poor nutrition x 9 days 3) Continue banana bag given hx Etoh abuse Addendum: 10/19/18 at [address] Amended: Links added.
--- NOTE | 2018-10-19 18:20 | NUR ---
Patient in room [facility]. I have received report from Shaw VALENCIA and had the opportunity to ask questions and assume patient care.
--- NOTE | 2018-10-19 18:48 | NUR ---
Problems reprioritized. Patient report given, questions answered & plan of care reviewed with Beba VALENCIA.
[2018-10-19 19:00] VITALS: BP 128/86
[2018-10-20] VITALS: BP 135/96
[2018-10-20] MEDS: piperacillin/tazo 3.375gm/50ml 50 ML IV SCH ×4 (00:13→23:10)
[2018-10-20] MEDS: HYDROmorphone 1 mg/ml syringe IV PRN ×5 (03:08→20:11)
--- NOTE | 2018-10-20 03:39 | NUR ---
MD called earlier as patient was in a lot of pain and very anxious. Earlier today the pain medication been changed from q4hr to q6hr and patient not tolerating very well. MD changed back to q4hr, and i was able to give .
[2018-10-20] MEDS: dextrose 5%-normal saline 1,000 ML IV SCH ×2 (05:19→21:46)
--- NOTE | 2018-10-20 06:26 | NUR ---
Patient in room [facility]. I have received report from Beba VALENCIA and had the opportunity to ask questions and assume patient care.
--- NOTE | 2018-10-20 06:30 | NUR ---
Problems reprioritized. Patient report given, questions answered & plan of care reviewed with Shaw wilson.
[2018-10-20 07:00] VITALS: BP_SYST 134; BP_SYST 143; BP_DIAS 68; BP_DIAS 95
[2018-10-20] MEDS: THIAMINE IV SCH (07:09)
[2018-10-20] MEDS: WATER IV SCH (07:09)
[2018-10-20] MEDS: DEXTROSE 5% IV SCH (07:09)
[2018-10-20] MEDS: pantoprazole 40 MG vial IV SCH ×2 (07:09→20:11)
[2018-10-20] MEDS: FOLIC ACID IV SCH (07:09)
[2018-10-20] MEDS: K and/or MAG REPLACEMENT MC SCH (08:00)
[2018-10-20 10:17] LABS: BASOPHILS # (AUTO) 0.1 X10'3 (0-0.2); BASOPHILS % (AUTO) 0.5 % (0-1); EOSINOPHILS # (AUTO) 0.2 X10'3 (0-0.9)
[2018-10-20 10:18] LABS: EOSINOPHILS % (AUTO) 0.9 % (0-6); HEMATOCRIT 33.8 % (42.0-52.0); HEMOGLOBIN 11.6 g/dl (14.0-17.9); LYMPHOCYTES # (AUTO) 2.1 X10'3 (1.1-4.8); LYMPHOCYTES % (AUTO) 10.4 % (21-51); MEAN CORPUSCULAR HEMOGLOBIN 35.4 PG (27.0-31.0); MEAN CORPUSCULAR HGB CONC 34.4 g/dL (33.0-36.5); MEAN CORPUSCULAR VOLUME 102.9 FL (78-98); MEAN PLATELET VOLUME 6.9 FL (7.4-10.4); MONOCYTES # (AUTO) 1.7 X10'3 (0-0.9); MONOCYTES % (AUTO) 8.3 % (2-12); NEUTROPHILS % (AUTO) 79.9 % (42-75); PLATELET COUNT 827 X10'3 (140-440); RED BLOOD COUNT 3.29 X10'6 (4.70-6.10); RED CELL DISTRIBUTION WIDTH 14.9 % (11.5-14.5)
[2018-10-20 10:31] LABS: ALANINE AMINOTRANSFERASE 54 U/L (12-78); ALBUMIN 1.8 G/DL (3.4-5.0); ALBUMIN/GLOBULIN RATIO 0.4 (1.1-1.5); ALKALINE PHOSPHATASE 117 IU/L (46-116); ANION GAP 9 (8-16); ASPARTATE AMINO TRANSFERASE 43 U/L (10-37); BILIRUBIN,TOTAL 0.2 MG/DL (0.1-1.0); BLOOD UREA NITROGEN 1 MG/DL (7-18); BUN/CREATININE RATIO 2.1 (5.4-32.0); CALCIUM 8.5 MG/DL (8.5-10.1); CHLORIDE 102 MMOL/L (99-107); CREATININE 0.48 MG/DL (0.60-1.10); GLUCOSE 98 MG/DL (70-104); POTASSIUM 3.5 MMOL/L (3.5-5.1); SODIUM 139 MMOL/L (135-145); TOTAL CARBON DIOXIDE 28.2 MMOL/L (24-32); TOTAL PROTEIN 6.3 G/DL (6.4-8.2); eGFR > 90 ML/MIN
[2018-10-20 10:34] LABS: LIPASE 603 U/L (73-393)
[2018-10-20 11:00] VITALS: BP 122/75
[2018-10-20 11:13] LABS: ANISOCYTOSIS 1+; PLATELET ESTIMATE INCREASED; TOTAL CELLS COUNTED 100
[2018-10-20 11:14] LABS: POLYCHROMASIA FEW; ROULEAUX 1+; TOXIC GRANULATION 3+
--- NOTE | 2018-10-20 14:43 | NUR ---
Paged Dr. Ace regarding patient's request to have something to eat or if we can start on PPN. Dr. Ace called me back and said "No, I'm not planning to feed him or to start PPN. He is already on D5NS!" Addendum: 10/20/18 at 1447 by Shaw Eugene RN Dr. Ace also said that she already discussed this with the patient
--- NOTE | 2018-10-20 18:28 | NUR ---
Received report from ERIK Squires. Patient is awake and alert on room air, in no apparent distress. Call light and items of frequent use within reach. Will continue to monitor.
--- NOTE | 2018-10-20 18:29 | NUR ---
Problems reprioritized. Patient report given, questions answered & plan of care reviewed with Cady VALENCIA.
[2018-10-20 20:00] VITALS: BP 141/99
[2018-10-20] MEDS: lactobacillus rhamnosus 10,000 MMU CELLS/CAPSULE PO SCH (20:12)
[2018-10-21] VITALS: BP 146/100
[2018-10-21] MEDS: HYDROmorphone 1 mg/ml syringe IV PRN ×6 (01:18→21:42)
--- NOTE | 2018-10-21 06:15 | NUR ---
Patient in room [facility]. I have received report from Cady VALENCIA and had the opportunity to ask questions and assume patient care.
--- NOTE | 2018-10-21 06:22 | NUR ---
Problems reprioritized. Patient report given, questions answered & plan of care reviewed with ERIK Whatley.
[2018-10-21 07:00] VITALS: BP 129/92
[2018-10-21] MEDS: DEXTROSE 5% IV SCH (07:27)
[2018-10-21] MEDS: pantoprazole 40 MG vial IV SCH ×2 (07:27→19:15)
[2018-10-21] MEDS: THIAMINE IV SCH (07:27)
[2018-10-21] MEDS: FOLIC ACID IV SCH (07:27)
[2018-10-21] MEDS: WATER IV SCH (07:27)
[2018-10-21] MEDS: lactobacillus rhamnosus 10,000 MMU CELLS/CAPSULE PO SCH ×2 (07:27→19:16)
[2018-10-21] MEDS: K and/or MAG REPLACEMENT MC SCH (08:00)
[2018-10-21] MEDS: piperacillin/tazo 3.375gm/50ml 50 ML IV SCH ×3 (09:20→23:59)
[2018-10-21 09:24] LABS: BASOPHILS # (AUTO) 0.1 X10'3 (0-0.2); BASOPHILS % (AUTO) 0.4 % (0-1)
[2018-10-21 09:26] LABS: EOSINOPHILS # (AUTO) 0.3 X10'3 (0-0.9); EOSINOPHILS % (AUTO) 1.5 % (0-6); LYMPHOCYTES # (AUTO) 2.3 X10'3 (1.1-4.8); LYMPHOCYTES % (AUTO) 13.9 % (21-51); MEAN CORPUSCULAR HEMOGLOBIN 35.7 PG (27.0-31.0); MEAN CORPUSCULAR HGB CONC 34.5 g/dL (33.0-36.5); MEAN CORPUSCULAR VOLUME 103.4 FL (78-98); MEAN PLATELET VOLUME 6.7 FL (7.4-10.4); MONOCYTES # (AUTO) 1.3 X10'3 (0-0.9); MONOCYTES % (AUTO) 7.9 % (2-12); NEUTROPHILS # (AUTO) 12.9 X10'3 (1.8-7.7); NEUTROPHILS % (AUTO) 76.3 % (42-75); PLATELET COUNT 810 X10'3 (140-440); RED BLOOD COUNT 3.09 X10'6 (4.70-6.10); RED CELL DISTRIBUTION WIDTH 14.7 % (11.5-14.5); WHITE BLOOD COUNT 16.9 X10'3 (4.5-11.0)
[2018-10-21 09:41] LABS: ALANINE AMINOTRANSFERASE 44 U/L (12-78); ALBUMIN 1.9 G/DL (3.4-5.0); ALBUMIN/GLOBULIN RATIO 0.5 (1.1-1.5); ALKALINE PHOSPHATASE 86 IU/L (46-116); ANION GAP 11 (8-16); ASPARTATE AMINO TRANSFERASE 30 U/L (10-37); BILIRUBIN,TOTAL 0.2 MG/DL (0.1-1.0); BLOOD UREA NITROGEN 3 MG/DL (7-18); BUN/CREATININE RATIO 6.3 (5.4-32.0); CALCIUM 8.4 MG/DL (8.5-10.1); CHLORIDE 103 MMOL/L (99-107); CREATININE 0.48 MG/DL (0.60-1.10); GLUCOSE 92 MG/DL (70-104); POTASSIUM 3.5 MMOL/L (3.5-5.1); SODIUM 141 MMOL/L (135-145); TOTAL CARBON DIOXIDE 27.4 MMOL/L (24-32); TOTAL PROTEIN 6.1 G/DL (6.4-8.2); eGFR > 90 ML/MIN
[2018-10-21 10:42] LABS: LIPASE 679 U/L (73-393)
[2018-10-21 10:47] LABS: ANISOCYTOSIS 1+; HYPOCHROMASIA 1+; PLATELET ESTIMATE INCREASED; POLYCHROMASIA FEW; TOTAL CELLS COUNTED 100; TOXIC GRANULATION 3+
[2018-10-21 10:48] LABS: SMUDGE CELLS FEW
[2018-10-21] MEDS: dextrose 5%-normal saline 1,000 ML IV SCH ×2 (11:12→22:39)
[2018-10-21 11:56] VITALS: BP 131/88
--- NOTE | 2018-10-21 13:15 | NUR ---
Reassessment: Pt NPO again, lipase trending back up, now 679. Dextrose/NS running at 75 mL/hr. No nutrition for 12 days. At risk for malnutrition. Last prealbumin was low at 7.5, needs some form of nutrition. RD had recommended to place Corpak in jejunum past the Ligament of Treitz d/t studies reporting inhibition of pancreatic secretions compared to PN when tube is placed 40-60 cm beyond the Ligament of Treitz. In view of jejunal feedings not well tolerated as the corpak was placed in the duodenum, corpak out, and NPO, patient would likely now benefit from parenteral nutrition if unable for PO or Jejunal feeds. Notified bedside RN and MD of above recommendation. Documented with diarrhea, patient had received tube feeding at 25 ml/hr for two days. Likely not r/t tube feeding. Possibly r/t antibiotics. Will continue to follow closely. Recommendations: 1) Advance to low fat diet as medically indicated 2) Pt would likely benefit from parenteral nutrition in view of Jejunal feedings not successful and given poor nutrition for 12 days 3) Continue banana bag, thiamine, and folic acid given hx Etoh abuse Addendum: 10/21/18 at [address] Amended: Links added. Addendum: 10/21/18 at [address] Reassessment: Pt NPO again, lipase trending back up, now 679. Dextrose/NS running at 75 mL/hr. No nutrition for 12 days. At risk for malnutrition. Last prealbumin was low at 7.5, needs some form of nutrition. RD had recommended to place Corpak in jejunum past the Ligament of Treitz d/t studies reporting inhibition of pancreatic secretions compared to PN when tube is placed 40-60 cm beyond the Ligament of Treitz. Unsure if jejunal feedings would have been tolerated, per reports the corpak was placed in the duodenum, however now corpak out and patient NPO, patient would likely now benefit from parenteral nutrition if unable for PO or Jejunal feeds. Notified bedside RN and MD of above recommendation. Documented with diarrhea, patient had received tube feeding at 25 ml/hr for two days. Likely not r/t tube feeding. Possibly r/t antibiotics. Will continue to follow closely.
--- NOTE | 2018-10-21 18:27 | NUR ---
Problems reprioritized. Patient report given, questions answered & plan of care reviewed with Evie VALENCIA.
--- NOTE | 2018-10-21 18:30 | NUR ---
Patient in room [facility]. I have received report from ERIK Whatley and had the opportunity to ask questions and assume patient care. Addendum: 10/21/18 at 1925 by Ne Zurita RN Amended: Links added.
[2018-10-21 19:00] VITALS: BP 130/86
[2018-10-22 00:32] VITALS: BP 124/88
[2018-10-22] MEDS: HYDROmorphone 1 mg/ml syringe IV PRN ×6 (01:56→23:25)
--- NOTE | 2018-10-22 06:00 | NUR ---
Patient in room [facility]. I have received report from Evie VALENCIA and had the opportunity to ask questions and assume patient care.
[2018-10-22 07:26] VITALS: BP 136/96
[2018-10-22] MEDS: pantoprazole 40 MG vial IV SCH ×2 (07:38→20:23)
[2018-10-22] MEDS: THIAMINE IV SCH (07:39)
[2018-10-22] MEDS: WATER IV SCH (07:39)
[2018-10-22] MEDS: DEXTROSE 5% IV SCH (07:39)
[2018-10-22] MEDS: FOLIC ACID IV SCH (07:39)
[2018-10-22] MEDS: lactobacillus rhamnosus 10,000 MMU CELLS/CAPSULE PO SCH ×2 (07:53→20:23)
[2018-10-22] MEDS: K and/or MAG REPLACEMENT MC SCH (07:53)
[2018-10-22 08:56] LABS: BASOPHILS # (AUTO) 0.1 X10'3 (0-0.2); BASOPHILS % (AUTO) 0.8 % (0-1); EOSINOPHILS # (AUTO) 0.2 X10'3 (0-0.9); EOSINOPHILS % (AUTO) 1.9 % (0-6); HEMATOCRIT 32.6 % (42.0-52.0); HEMOGLOBIN 11.3 g/dl (14.0-17.9); LYMPHOCYTES # (AUTO) 2.3 X10'3 (1.1-4.8); LYMPHOCYTES % (AUTO) 18.2 % (21-51); MEAN CORPUSCULAR HEMOGLOBIN 35.7 PG (27.0-31.0); MEAN CORPUSCULAR HGB CONC 34.6 g/dL (33.0-36.5); MEAN PLATELET VOLUME 6.4 FL (7.4-10.4); MONOCYTES % (AUTO) 7.6 % (2-12); NEUTROPHILS # (AUTO) 9.1 X10'3 (1.8-7.7); NEUTROPHILS % (AUTO) 71.5 % (42-75); PLATELET COUNT 842 X10'3 (140-440); RED BLOOD COUNT 3.16 X10'6 (4.70-6.10); RED CELL DISTRIBUTION WIDTH 15.5 % (11.5-14.5); WHITE BLOOD COUNT 12.7 X10'3 (4.5-11.0)
[2018-10-22 09:10] LABS: ALBUMIN 1.9 G/DL (3.4-5.0); ANION GAP 9 (8-16); BLOOD UREA NITROGEN 1 MG/DL (7-18); CALCIUM 8.9 MG/DL (8.5-10.1); CHLORIDE 104 MMOL/L (99-107); CREATININE 0.49 MG/DL (0.60-1.10); GLUCOSE 105 MG/DL (70-104); LIPASE 672 U/L (73-393); POTASSIUM 3.6 MMOL/L (3.5-5.1); SODIUM 141 MMOL/L (135-145); TOTAL CARBON DIOXIDE 28.3 MMOL/L (24-32); eGFR > 90 ML/MIN
[2018-10-22] MEDS: piperacillin/tazo 3.375gm/50ml 50 ML IV SCH ×3 (09:12→23:51)
[2018-10-22 10:44] LABS: CHOL/HDL RATIO 5.6 (0.00-4.99); CHOLESTEROL 100 MG/DL (0-200); HDL CHOLESTEROL 18 MG/DL (35-60); LDL CHOLESTEROL 67 MG/DL (50-100); TRIGLYCERIDES 96 MG/DL (20-135)
--- NOTE | 2018-10-22 11:05 | NUR ---
TPN consult: Pt now day 13 with little to no nutrition. Pt pending PICC placement. Recommendations below calculated to meet 100% of patient's estimated nutrient needs and have been discussed with pharmacy for once PICC has been placed. Recommend discontinuing D5 once TPN initiated. [facility] 10/21. Will continue to follow. Recommendations: 1) Advance to low fat diet as medically indicated 2) Once PICC is placed, continuous 2:1 Clinimix E 5/20 at 80 mL/hr to provide: 1920 mL total volume/day, 96 g AA, and 384 g dextrose. Dext load 4.78 mg/kg/min 3) Separate 204 mL 20% intralipids at 17 mL/hr for 12 hours to provide 40.8 g lipid 4) In total, TPN to provide: 1714 non-protein kcal and 2098 total kcal 5) Daily weights; TG 6) Continue banana bag given hx Etoh abuse Addendum: 10/22/18 at [address] Amended: Links added.
[2018-10-22] MEDS: dextrose 5%-normal saline 1,000 ML IV SCH ×2 (11:44→23:51)
[2018-10-22 12:00] VITALS: BP 123/85
--- NOTE | 2018-10-22 13:12 | NUR ---
Received TC from RN who states MD would like to hold off on TPN at this time to trial clear liquid diet. PICC hasn't been placed yet. Discussed this information with pharmacy. Will continue to follow. Recommendations: 1) Advance to low fat diet as medically indicated 2) Once PICC is placed if TPN, continuous 2:1 Clinimix E 5/20 at 80 mL/hr to provide: 1920 mL total volume/day, 96 g AA, and 384 g dextrose. Dext load 4.78 mg/kg/min 3) If TPN, separate 204 mL 20% intralipids at 17 mL/hr for 12 hours to provide 40.8 g lipid 4) In total, TPN to provide: 1714 non-protein kcal and 2098 total kcal 5) Daily weights; TG 6) Continue banana bag given hx Etoh abuse Addendum: 10/22/18 at [address] Amended: Links added.
--- NOTE | 2018-10-22 19:12 | NUR ---
Problems reprioritized. Patient report given, questions answered & plan of care reviewed with Rubin VALENCIA.
[2018-10-22 20:00] VITALS: BP 134/93
[2018-10-23] VITALS: BP 134/98
[2018-10-23] MEDS: HYDROmorphone 1 mg/ml syringe IV PRN ×3 (04:13→12:50)
[2018-10-23 04:32] LABS: BASOPHILS # (AUTO) 0.1 X10'3 (0-0.2); BASOPHILS % (AUTO) 1.1 % (0-1); EOSINOPHILS # (AUTO) 0.3 X10'3 (0-0.9); HEMOGLOBIN 11.5 g/dl (14.0-17.9); LYMPHOCYTES # (AUTO) 2.7 X10'3 (1.1-4.8)
[2018-10-23 04:33] LABS: EOSINOPHILS % (AUTO) 2.4 % (0-6); HEMATOCRIT 34.3 % (42.0-52.0); LYMPHOCYTES % (AUTO) 25.3 % (21-51); MEAN CORPUSCULAR HEMOGLOBIN 34.7 PG (27.0-31.0); MEAN CORPUSCULAR HGB CONC 33.5 g/dL (33.0-36.5); MEAN CORPUSCULAR VOLUME 103.5 FL (78-98); MEAN PLATELET VOLUME 6.9 FL (7.4-10.4); MONOCYTES # (AUTO) 0.8 X10'3 (0-0.9); MONOCYTES % (AUTO) 7.8 % (2-12); NEUTROPHILS # (AUTO) 6.7 X10'3 (1.8-7.7); NEUTROPHILS % (AUTO) 63.4 % (42-75); PLATELET COUNT 872 X10'3 (140-440); RED BLOOD COUNT 3.32 X10'6 (4.70-6.10); RED CELL DISTRIBUTION WIDTH 14.6 % (11.5-14.5); WHITE BLOOD COUNT 10.5 X10'3 (4.5-11.0)
[2018-10-23 04:47] LABS: ALBUMIN 1.9 G/DL (3.4-5.0); ANION GAP 8 (8-16); BLOOD UREA NITROGEN 1 MG/DL (7-18); BUN/CREATININE RATIO 1.9 (5.4-32.0); CALCIUM 8.5 MG/DL (8.5-10.1); CHLORIDE 106 MMOL/L (99-107); CREATININE 0.53 MG/DL (0.60-1.10); GLUCOSE 93 MG/DL (70-104); LIPASE 578 U/L (73-393); MAGNESIUM 1.7 MG/DL (1.5-2.4); PHOSPHORUS 4.7 MG/DL (2.3-4.5); POTASSIUM 3.5 MMOL/L (3.5-5.1); SODIUM 140 MMOL/L (135-145); TOTAL CARBON DIOXIDE 26.4 MMOL/L (24-32); eGFR > 90 ML/MIN
--- NOTE | 2018-10-23 06:17 | NUR ---
Problems reprioritized. Patient report given, questions answered & plan of care reviewed with ERIK Ventura.
--- NOTE | 2018-10-23 06:52 | NUR ---
Patient in room [facility]. I have received report from IMELDA wilson and had the opportunity to ask questions and assume patient care.
[2018-10-23 06:56] LABS: PLATELET ESTIMATE INCREASED
[2018-10-23 07:00] VITALS: BP 135/85
[2018-10-23] MEDS: K and/or MAG REPLACEMENT MC SCH (08:00)
[2018-10-23] MEDS: pantoprazole 40 MG vial IV SCH ×2 (08:51→19:40)
[2018-10-23] MEDS: lactobacillus rhamnosus 10,000 MMU CELLS/CAPSULE PO SCH ×2 (08:51→19:40)
[2018-10-23] MEDS: DEXTROSE 5% IV SCH (08:52)
[2018-10-23] MEDS: FOLIC ACID IV SCH (08:52)
[2018-10-23] MEDS: THIAMINE IV SCH (08:52)
[2018-10-23] MEDS: WATER IV SCH (08:52)
[2018-10-23] MEDS: piperacillin/tazo 3.375gm/50ml 50 ML IV SCH (09:02)
[2018-10-23 11:00] VITALS: BP 124/84
--- NOTE | 2018-10-23 11:03 | NUR ---
Reassessment: Per MD notes pt clinically better and reports feeling better with less abdominal pain. Pt deferred PICC or PN at this time to monitor tolerance to clear liquid diet per MD notes. Pt documented with 100% PO intake and is tolerating with no N/V per RN notes. Diet has just been advanced to full liquid, pending tolerance to advanced diet. Lipase down today to 578 from 672 yesterday. LBM 9/3 moderate in size. Will continue to follow. Recommendations: 1) Advance to low fat diet as medically indicated 2) Monitor need for ONS 3) Bowel care PRN 4) Continue banana bag given hx Etoh abuse 5) Wt per rx Addendum: 10/23/18 at [address] Amended: Links added.
--- NOTE | 2018-10-23 14:00 | NUR ---
Patients diet was increased to full lqd, patients friend brought him a milk shake which patent stated upset his stomach. Patient cautioned to go slow. patient compliant.
[2018-10-23] MEDS ORDERED: acetaminophen 325mg tablet PO PRN (15:05)
[2018-10-23] MEDS: dextrose 5%-normal saline 1,000 ML IV SCH (15:23)
[2018-10-23] MEDS: HYDROcodone/acetaminophen 5mg/325mg tablet PO PRN ×2 (15:28→21:19)
[2018-10-23] MEDS: ibuprofen tablet 400 MG TABLET PO SCH (17:11)
--- NOTE | 2018-10-23 18:30 | NUR ---
Patient in room J[facility] 344. I have received report from Audrey VALENCIA and had the opportunity to ask questions and assume patient care.
--- NOTE | 2018-10-23 18:37 | NUR ---
Problems reprioritized. Patient report given, questions answered & plan of care reviewed with CONSUELO VALENCIA.
[2018-10-23 19:00] VITALS: BP 115/67
[2018-10-24] VITALS: BP 110/75
[2018-10-24] MEDS: dextrose 5%-normal saline 1,000 ML IV SCH (01:59)
[2018-10-24 04:53] LABS: BASOPHILS # (AUTO) 0.1 X10'3 (0-0.2); BASOPHILS % (AUTO) 1.2 % (0-1); EOSINOPHILS # (AUTO) 0.2 X10'3 (0-0.9); EOSINOPHILS % (AUTO) 2.9 % (0-6); HEMATOCRIT 33.6 % (42.0-52.0); HEMOGLOBIN 11.2 g/dl (14.0-17.9); LYMPHOCYTES # (AUTO) 2.6 X10'3 (1.1-4.8); LYMPHOCYTES % (AUTO) 31.8 % (21-51); MEAN CORPUSCULAR HEMOGLOBIN 34.7 PG (27.0-31.0); MEAN CORPUSCULAR HGB CONC 33.4 g/dL (33.0-36.5); MEAN CORPUSCULAR VOLUME 103.8 FL (78-98); MEAN PLATELET VOLUME 6.6 FL (7.4-10.4); MONOCYTES # (AUTO) 0.7 X10'3 (0-0.9); MONOCYTES % (AUTO) 9.1 % (2-12); NEUTROPHILS # (AUTO) 4.4 X10'3 (1.8-7.7); PLATELET COUNT 860 X10'3 (140-440); RED BLOOD COUNT 3.23 X10'6 (4.70-6.10); RED CELL DISTRIBUTION WIDTH 15.1 % (11.5-14.5); WHITE BLOOD COUNT 8.1 X10'3 (4.5-11.0)
[2018-10-24 05:20] LABS: ALBUMIN 1.9 G/DL (3.4-5.0); ANION GAP 8 (8-16); BLOOD UREA NITROGEN 1 MG/DL (7-18); BUN/CREATININE RATIO 1.9 (5.4-32.0); CALCIUM 8.5 MG/DL (8.5-10.1); CHLORIDE 108 MMOL/L (99-107); CREATININE 0.52 MG/DL (0.60-1.10); GLUCOSE 97 MG/DL (70-104); LIPASE 448 U/L (73-393); MAGNESIUM 1.8 MG/DL (1.5-2.4); PHOSPHORUS 4.3 MG/DL (2.3-4.5); POTASSIUM 3.6 MMOL/L (3.5-5.1); SODIUM 142 MMOL/L (135-145); TOTAL CARBON DIOXIDE 25.8 MMOL/L (24-32); eGFR > 90 ML/MIN
--- NOTE | 2018-10-24 06:39 | NUR ---
Problems reprioritized. Patient report given, questions answered & plan of care reviewed with nicko and chirag.
--- NOTE | 2018-10-24 06:45 | NUR ---
Patient in room JACK 344. I have received report from anni wilson and had the opportunity to ask questions and assume patient care.
[2018-10-24 07:00] VITALS: BP 132/94
[2018-10-24] MEDS: THIAMINE IV SCH (07:32)
[2018-10-24] MEDS: pantoprazole 40 MG vial IV SCH (07:32)
[2018-10-24] MEDS: FOLIC ACID IV SCH (07:32)
[2018-10-24] MEDS: DEXTROSE 5% IV SCH (07:32)
[2018-10-24] MEDS: WATER IV SCH (07:32)
[2018-10-24] MEDS: lactobacillus rhamnosus 10,000 MMU CELLS/CAPSULE PO SCH (07:32)
[2018-10-24] MEDS: ibuprofen tablet 400 MG TABLET PO SCH ×2 (07:33→11:54)
[2018-10-24] MEDS: K and/or MAG REPLACEMENT MC SCH (08:00)
[2018-10-24] MEDS ORDERED: HYDROcodone/acetaminophen 5mg/325mg tablet PO PRN (09:15)
[2018-10-24 11:00] VITALS: BP 142/97
[2018-10-24] MEDS ORDERED: THIA100T66 PO (11:14)
[2018-10-24] MEDS ORDERED: FOLI0.4T2 PO (11:16)
[2018-10-24] MEDS ORDERED: FAMO-128 PO (11:17)
[2018-10-24] MEDS ORDERED: HYDR-4383 PO (11:18)
--- NOTE | 2018-10-24 14:06 | NUR ---
Patient was seen by Dr Leslie kingston for discharge. all discharge instruction given to patient, meds delivered by [facility]. patient appear to be in stable condition. D/C home by private vehicle with friends at 1330 hrs.
== END 2018-10-24 13:40 | disposition home or self-care (01) | DRG 282 ==
LOC: ER 13:58 → SUR 3N 19:15 → CMPBEDREQ 10-14 19:34 → SUR 3N 10-15 05:26
PROVIDERS: ADMIT Internal Medicine; ATTEND Hospitalist
PROC: BW211ZZ Computerized Tomography (CT Scan) of Abdomen and Pelvis using Low Osmolar Contrast (ICD-10-PCS; principal; 2018-10-15)
PROC: BW251ZZ Computerized Tomography (CT Scan) of Chest, Abdomen and Pelvis using Low Osmolar Contrast (ICD-10-PCS; 2018-10-18)
DX: K85.20 Alcohol induced acute pancreatitis without necrosis or infection (principal); N17.0 Acute kidney failure with tubular necrosis; R65.11 Systemic inflammatory response syndrome (SIRS) of non-infectious origin with acute organ dysfunction; J90 Pleural effusion, not elsewhere classified; K56.7 Ileus, unspecified; K76.0 Fatty (change of) liver, not elsewhere classified; D75.89 Other specified diseases of blood and blood-forming organs; K57.90 Diverticulosis of intestine, part unspecified, without perforation or abscess without bleeding; E87.6 Hypokalemia; E16.2 Hypoglycemia, unspecified; F17.210 Nicotine dependence, cigarettes, uncomplicated; Z88.2 Allergy status to sulfonamides
CPT/HCPCS: 36415; 71045; 71260; 74018; 74177; 76700; 80048; 80053; 80061; 81001; 82150; 82607; 82948; 83605; 83690; 83735; 84100; 84132; 84134; 84145; 85025; 85610; 87040; 87081; 93306; 96374; 96375; 96376; 99285; C9113; G0378; J1170; J1885; J2270; J2405; J2543; J3411; J3475; J3480; J3490; J7030; J7040; J7042; J7060; Q9967

== ENCOUNTER 2019-03-21 16:00 | Emergency (ER) | payer MEDICAID ==
[~2019-03-21] VITALS: Ht 180.3 cm; Wt 57.0 kg
[~2019-03-21 16:00] MED LIST changes: -CEPH500C5 PO; +FAMO-128 PO; +FOLI0.4T2 PO; +HYDR-4383 PO; +THIA100T66 PO
[2019-03-21 16:27] VITALS: BP 127/80
--- NOTE | 2019-03-21 17:03 | NUR ---
PT IS BACK FROM XRAY,
== END 2019-03-21 17:45 | disposition home or self-care (01) ==
LOC: ER 16:00
DX: M79.641 Pain in right hand (principal); F10.99 Alcohol use, unspecified with unspecified alcohol-induced disorder; Z98.890 Other specified postprocedural states; Z88.2 Allergy status to sulfonamides; Z79.899 Other long term (current) drug therapy; Y90.9 Presence of alcohol in blood, level not specified; W22.8XXA Striking against or struck by other objects, initial encounter; Y93.89 Activity, other specified; Y92.89 Other specified places as the place of occurrence of the external cause; Y99.8 Other external cause status
CPT/HCPCS: 73130; 99283

== ENCOUNTER 2019-05-11 18:17 | Emergency (ER) | payer MEDICAID ==
[~2019-05-11] VITALS: Ht 180.3 cm; Wt 57.2 kg
[2019-05-11] MEDS ORDERED: morphine 4 MG/ML inj SYRINge IV ONE ×2 (19:55→20:45)
[2019-05-11] MEDS ORDERED: HYDR-3965 PO (20:46)
[2019-05-11 21:11] VITALS: BP 154/85
== END 2019-05-11 21:13 | disposition home or self-care (01) ==
LOC: ER 18:18
DX: S42.211A Unspecified displaced fracture of surgical neck of right humerus, initial encounter for closed fracture (principal); Z98.890 Other specified postprocedural states; Z79.899 Other long term (current) drug therapy; Z88.2 Allergy status to sulfonamides; W01.0XXA Fall on same level from slipping, tripping and stumbling without subsequent striking against object, initial encounter; Y93.01 Activity, walking, marching and hiking; Y92.89 Other specified places as the place of occurrence of the external cause; Y99.9 Unspecified external cause status
CPT/HCPCS: 73030; 96374; 96376; 99284; J2270

== ENCOUNTER 2020-01-31 13:29 | Emergency (ER) | payer MEDICAID ==
[~2020-01-31] VITALS: Ht 180.3 cm; Wt 52.0 kg
[2020-01-31 15:05] LABS: BASOPHILS % (AUTO) 0.2 % (0-1); EOSINOPHILS % (AUTO) 0.1 % (0-6); HEMATOCRIT 45.1 % (42.0-52.0); HEMOGLOBIN 15.8 g/dl (14.0-17.9); LYMPHOCYTES # (AUTO) 0.8 X10'3 (1.1-4.8); LYMPHOCYTES % (AUTO) 7.8 % (21-51); MEAN CORPUSCULAR HEMOGLOBIN 34.9 PG (27.0-31.0); MEAN CORPUSCULAR VOLUME 99.7 FL (78-98); MEAN PLATELET VOLUME 7.6 FL (7.4-10.4); MONOCYTES # (AUTO) 0.8 X10'3 (0-0.9); MONOCYTES % (AUTO) 7.5 % (2-12); NEUTROPHILS # (AUTO) 8.8 X10'3 (1.8-7.7); NEUTROPHILS % (AUTO) 84.4 % (42-75); PLATELET COUNT 180 X10'3 (140-440); RED BLOOD COUNT 4.53 X10'6 (4.70-6.10); RED CELL DISTRIBUTION WIDTH 12.7 % (11.5-14.5); WHITE BLOOD COUNT 10.4 X10'3 (4.5-11.0)
[2020-01-31 15:25] LABS: ALANINE AMINOTRANSFERASE 103 U/L (12-78); ALBUMIN 4.3 G/DL (3.4-5.0); ALBUMIN/GLOBULIN RATIO 1.1 (1.1-1.5); ALKALINE PHOSPHATASE 96 IU/L (46-116); ANION GAP 11 (8-16); ASPARTATE AMINO TRANSFERASE 67 U/L (10-37); BILIRUBIN,TOTAL 0.9 MG/DL (0.1-1.0); BLOOD UREA NITROGEN 5 MG/DL (7-18); BUN/CREATININE RATIO 6.9 (5.4-32.0); CHLORIDE 99 MMOL/L (99-107); CREATININE 0.72 MG/DL (0.60-1.10); GLUCOSE 141 MG/DL (70-104); POTASSIUM 3.9 MMOL/L (3.5-5.1); SODIUM 138 MMOL/L (135-145); TOTAL CARBON DIOXIDE 27.6 MMOL/L (24-32); TOTAL PROTEIN 8.2 G/DL (6.4-8.2); eGFR > 90 ML/MIN
[2020-01-31 15:29] LABS: CALCIUM 9.9 MG/DL (8.5-10.1)
[2020-01-31 15:40] LABS: LIPASE 3472 U/L (73-393)
[2020-01-31] MEDS ORDERED: normal saline 1000ml 1,000 ML IV ONE ×2 (15:45→16:15)
[2020-01-31] MEDS ORDERED: ondansetron/PF 4mg/2ml inj IV ONE ×2 (15:45→16:35)
[2020-01-31] MEDS ORDERED: morphine 4 MG/ML inj SYRINge IV ONE ×2 (15:45→16:35)
[2020-01-31 15:56] LABS: CLARITY,URINE SLIGHTLY CLOUDY (Clear); GLUCOSE, URINE 500 mg/dl (Neg); KETONES,URINE 40 mg/dl (Neg); LEUKOCYTE ESTERASE ,URINE NEGATIVE (Neg); NITRITES, URINE NEGATIVE (Neg); OCCULT BLOOD,URINE NEGATIVE (Neg); PROTEIN,URINE 30 mg/dl (Neg)
[2020-01-31 16:00] LABS: UA COLLECTION TYPE CLN CATCH MIDSTREAM
[2020-01-31 16:16] LABS: COLOR,URINE DARK YELLOW (Yellow)
[2020-01-31 16:17] LABS: MUCUS STRANDS MANY /LPF (Neg); SQUAMOUS EPITHELIAL CELL,UR FEW /LPF (FEW)
[2020-01-31 16:19] LABS: BACTERIA,URINE FEW /HPF (Neg); RBC,URINE 0-2 /HPF (0-2); WBC,URINE 0-4 /HPF (0-4)
--- NOTE | 2020-01-31 16:24 | NUR ---
PT TO ULTRASOUND.
[2020-01-31] MEDS ORDERED: ONDA4TAB6 PO (17:05)
[2020-01-31] MEDS ORDERED: HYDR-4383 PO (17:05)
[2020-01-31] MEDS ORDERED: pantoprazole 40mg Tablet.DR PO ONE (17:30)
[2020-01-31] MEDS ORDERED: pantoprazole 40mg Tablet.DR PO SCH (17:30)
[2020-01-31 17:58] VITALS: BP 167/117
[2020-02-01] MEDS ORDERED: pantoprazole 40mg Tablet.DR PO SCH (07:30)
== END 2020-01-31 18:00 | disposition home or self-care (01) ==
LOC: ER 13:30
DX: K85.20 Alcohol induced acute pancreatitis without necrosis or infection (principal); Z87.81 Personal history of (healed) traumatic fracture; Z88.2 Allergy status to sulfonamides; Z79.899 Other long term (current) drug therapy
CPT/HCPCS: 36415; 76700; 80053; 81001; 83690; 85025; 96361; 96374; 96375; 96376; 99284; J2270; J2405; J7030

== ENCOUNTER 2021-08-03 18:13 | Inpatient (IN) | payer MEDICAID ==
[~2021-08-03] VITALS: Ht 180.3 cm; Wt 51.2 kg
[~2021-08-03 18:13] MED LIST changes: -FOLI0.4T2 PO; +FOLI0.4T6 PO; +ONDA4TAB6 PO
[2021-08-03] MEDS ORDERED: normal saline 1000ML IV soln IVB ONE (18:55)
[2021-08-03] MEDS ORDERED: ondansetron/PF 4mg/2ml inj IM ONE (18:55)
[2021-08-03] MEDS ORDERED: folic acid 1mg/0.2ml inj IV ONE (19:10)
[2021-08-03] MEDS ORDERED: thiamine 100mg/ml 2ml inj. IV ONE (19:10)
[2021-08-03 19:20] LABS: BASOPHILS # (AUTO) 0.2 X10'3 (0-0.2); EOSINOPHILS % (AUTO) 0.2 % (0-6); HEMATOCRIT 44.8 % (42.0-52.0); HEMOGLOBIN 15.7 g/dl (14.0-17.9); LYMPHOCYTES # (AUTO) 3.8 X10'3 (1.1-4.8); LYMPHOCYTES % (AUTO) 24.7 % (21-51); MEAN CORPUSCULAR HEMOGLOBIN 36.2 PG (27.0-31.0); MEAN CORPUSCULAR VOLUME 103.5 FL (78-98); MEAN PLATELET VOLUME 8.1 FL (7.4-10.4); MONOCYTES # (AUTO) 1.4 X10'3 (0-0.9); MONOCYTES % (AUTO) 9.3 % (2-12); NEUTROPHILS % (AUTO) 64.8 % (42-75); PLATELET COUNT 184 X10'3 (140-440); RED BLOOD COUNT 4.33 X10'6 (4.70-6.10); RED CELL DISTRIBUTION WIDTH 14.2 % (11.5-14.5); WHITE BLOOD COUNT 15.5 X10'3 (4.5-11.0)
[2021-08-03 19:34] LABS: ALANINE AMINOTRANSFERASE 89 U/L (12-78); ALBUMIN 2.5 G/DL (3.4-5.0); ALKALINE PHOSPHATASE 300 IU/L (46-116); ANION GAP 20 (8-16); ASPARTATE AMINO TRANSFERASE 288 U/L (10-37); BILIRUBIN,TOTAL 4.3 MG/DL (0.1-1.0); BLOOD UREA NITROGEN 5 MG/DL (7-18); BUN/CREATININE RATIO 5.3 (5.4-32.0); CALCIUM 8.3 MG/DL (8.5-10.1); CHLORIDE 95 MMOL/L (99-107); CREATININE 0.94 MG/DL (0.60-1.10); ETHANOL 0.285 GM/DL (0.0-0.010); GLUCOSE 129 MG/DL (70-104); LIPASE < 50 U/L (73-393); MAGNESIUM 1.2 MG/DL (1.5-2.4); SODIUM 140 MMOL/L (135-145); TOTAL CARBON DIOXIDE 24.7 MMOL/L (24-32); eGFR > 90 ML/MIN
[2021-08-03 19:38] LABS: ALBUMIN/GLOBULIN RATIO 0.6 (1.1-1.5); TOTAL PROTEIN 6.7 G/DL (6.4-8.2)
[2021-08-03 19:41] LABS: POTASSIUM 2.7 MMOL/L (3.5-5.1)
[2021-08-03] MEDS ORDERED: potassium Cl 10 mEq/100mL bag IV ONE (19:50)
[2021-08-03] MEDS ORDERED: morphine 4 MG/ML inj SYRINge IV ONE (19:55)
[2021-08-03] MEDS ORDERED: acetaminophen 325mg tablet PO PRN (20:40)
[2021-08-03] MEDS ORDERED: mag hydrox/Alum hydrox/simeth 30ml oral suspension PO PRN (20:40)
[2021-08-03] MEDS ORDERED: ondansetron/PF 4mg/2ml inj IV PRN (20:40)
[2021-08-03] MEDS ORDERED: magnesium 4gm in 100ml NS 100 ML IV PRN (20:40)
[2021-08-03] MEDS ORDERED: magnesium hydroxide 30ml (MOM) UD suspension PO PRN (20:40)
[2021-08-03] MEDS ORDERED: magnesium 2GM in 50ml NS 50 ML IV PRN (20:40)
[2021-08-03 21:46] LABS: CLARITY,URINE CLEAR (Clear)
[2021-08-03 21:50] LABS: COLOR,URINE Orange (Yellow); UA COLLECTION TYPE NON-SPECIFIED
[2021-08-03] MEDS: potassium Cl 20mEq in NS 1,000 ML IV SCH (21:57)
[2021-08-03 21:58] LABS: BACTERIA,URINE 1+ /HPF (Neg); RBC,URINE 0-2 /HPF (0-2); SQUAMOUS EPITHELIAL CELL,UR NONE SEEN /LPF (FEW)
[2021-08-03 22:11] LABS: URINE AMPHETAMINE SCREEN NEGATIVE (Neg); URINE BARBITUATE SCREEN NEGATIVE (Neg); URINE BENZODIAZEPINES SCREEN NEGATIVE (Neg); URINE CANNABINOID SCREEN POSITIVE (Neg); URINE COCAINE SCREEN NEGATIVE (Neg); URINE METHADONE SCREEN NEGATIVE (Neg); URINE OPIATE SCREEN NEGATIVE (Neg); URINE PHENCYCLIDINE SCREEN NEGATIVE (Neg)
[2021-08-03 22:24] VITALS: BP 141/96
[2021-08-03] MEDS: LORazepam 2 mg/ml vial IV PRN (23:47)
--- NOTE | 2021-08-04 01:00 | NUR ---
Called Dr. Lake to inform of repeat lactic being 4.8, down from 7.7. Patient is also requesting pain medicine. No answer, will try again.
--- NOTE | 2021-08-04 01:42 | NUR ---
Called Dr. Lake to inform of repeat lactic being 4.8, down from 7.7. Patient is also requesting pain medicine. No answer, will try again.
[2021-08-04] MEDS: LORazepam 2 mg/ml vial IV PRN ×6 (02:51→21:22)
--- NOTE | 2021-08-04 03:30 | NUR ---
Dr. Lake returned call and said "no" to pain medicine.
[2021-08-04 06:00] VITALS: BP 119/77
[2021-08-04 06:22] LABS: BASOPHILS # (AUTO) 0.1 X10'3 (0-0.2); BASOPHILS % (AUTO) 0.5 % (0-1); EOSINOPHILS # (AUTO) 0.1 X10'3 (0-0.9); EOSINOPHILS % (AUTO) 0.8 % (0-6); HEMATOCRIT 37.1 % (42.0-52.0); HEMOGLOBIN 12.5 g/dl (14.0-17.9); LYMPHOCYTES # (AUTO) 4.2 X10'3 (1.1-4.8); LYMPHOCYTES % (AUTO) 35.6 % (21-51); MEAN CORPUSCULAR HEMOGLOBIN 35.9 PG (27.0-31.0); MEAN CORPUSCULAR HGB CONC 33.7 g/dL (33.0-36.5); MEAN CORPUSCULAR VOLUME 106.5 FL (78-98); MEAN PLATELET VOLUME 8.5 FL (7.4-10.4); MONOCYTES # (AUTO) 1.2 X10'3 (0-0.9); MONOCYTES % (AUTO) 9.6 % (2-12); NEUTROPHILS # (AUTO) 6.4 X10'3 (1.8-7.7); NEUTROPHILS % (AUTO) 53.5 % (42-75); PLATELET COUNT 104 X10'3 (140-440); RED BLOOD COUNT 3.49 X10'6 (4.70-6.10); RED CELL DISTRIBUTION WIDTH 14.2 % (11.5-14.5); WHITE BLOOD COUNT 11.9 X10'3 (4.5-11.0)
[2021-08-04] MEDS: potassium Cl 20mEq in NS 1,000 ML IV SCH ×2 (06:27→16:40)
[2021-08-04 06:58] LABS: ALANINE AMINOTRANSFERASE 68 U/L (12-78); ALBUMIN 1.9 G/DL (3.4-5.0); ALBUMIN/GLOBULIN RATIO 0.6 (1.1-1.5); ALKALINE PHOSPHATASE 218 IU/L (46-116); ANION GAP 11 (8-16); ASPARTATE AMINO TRANSFERASE 231 U/L (10-37); BILIRUBIN,TOTAL 4.3 MG/DL (0.1-1.0); BLOOD UREA NITROGEN 2 MG/DL (7-18); BUN/CREATININE RATIO 3.6 (5.4-32.0); CALCIUM 6.8 MG/DL (8.5-10.1); CHLORIDE 104 MMOL/L (99-107); CREATININE 0.56 MG/DL (0.60-1.10); GLUCOSE 63 MG/DL (70-104); POTASSIUM 3.2 MMOL/L (3.5-5.1); SODIUM 141 MMOL/L (135-145); TOTAL CARBON DIOXIDE 26.1 MMOL/L (24-32); eGFR > 90 ML/MIN
[2021-08-04 07:01] LABS: MAGNESIUM 0.9 MG/DL (1.5-2.4)
--- NOTE | 2021-08-04 07:11 | NUR ---
Message: [id number] Andrew Mitchell has a pain level 9/10 and no pain medications ordered. FYI His mag is critical 0.9, but has K & Mg protocol ordered. Thank you Gina [phone]
[2021-08-04] MEDS: thiamine 100mg/ml 2ml inj. IV SCH (07:35)
[2021-08-04] MEDS: docusate sod 100mg capsule PO SCH ×2 (07:36→20:00)
[2021-08-04] MEDS: heparin, porcine 5000 units/ml vial SQ SCH ×2 (07:37→21:31)
[2021-08-04] MEDS ORDERED: pantoprazole 40MG/NS 100ML BAG 100 ML IV SCH (08:00)
[2021-08-04] MEDS: K and/or MAG REPLACEMENT MC SCH ×2 (08:44→20:00)
--- NOTE | 2021-08-04 09:07 | NUR ---
Message: Andrew Mitchell [id number] has pain 9/10 with pancreatitis and has no pain meds ordered was given nothing all night for pain. Please advise Gina VALENCIA ext [phone]
--- NOTE | 2021-08-04 09:49 | NUR ---
Noted pt with a low BMI using scaled wt of 51.25 kg. Per EMR pt with scaled wt h/o 52-55 kg, wt appears stable. Pending documentation of PO intake on clear liquid diet. Pt denied wt loss or decreased appetite per malnutrition risk screen with RN. Pt likely chronically underweight. Pt with no documented decrease in muscle strength or edema. Pt currently lacks a minimum of two criteria for malnutrition. Will continue to follow. Addendum: 08/04/21 at [address] Amended: Links added.
[2021-08-04] MEDS: potassium CL 10mEq/100ml bag 100 ML IV PRN ×3 (09:58→14:10)
[2021-08-04] MEDS ORDERED: acetaminophen 325mg tablet PO PRN (10:30)
[2021-08-04 11:00] VITALS: BP 123/80
--- NOTE | 2021-08-04 11:41 | NUR ---
Message: [id number] Andrew Mitchell has pain 10/29 the Tylenol was not effective. He is requesting pain medication again. He is tachycardic 114 and tachypneic 20. Can we please give him something to address his pain? Please advise Gina VALENCIA [phone]
[2021-08-04] MEDS ORDERED: IOHEXOL 12MG/ML oral solution 500 ML BOTTLE PO ONE (12:10)
--- NOTE | 2021-08-04 12:15 | NUR ---
Message: [id number] Andrew Mitchell is now agitated because his pain is not being controlled. Tylenol didn't work and the lorazepam is not touching pain. Please advise Gina VALENCIA ext [phone]
[2021-08-04] MEDS ORDERED: morphine 2 MG/ML inj. syringe IV ONE (12:20)
[2021-08-04] MEDS ORDERED: NO HOME MEDS (12:28)
--- NOTE | 2021-08-04 12:45 | NUR ---
ordered 40 Meq 1xonly now of potassium & 4gm of Magnesium IV. I Spoke with [facility] who said I needed to give patient 10Meq of potassium at a time IV per protocol. Dr wanted me to give him 40meq 1x only of potassium but IV it has to be 10Meq at time IV.
[2021-08-04] MEDS ORDERED: iohexol 300mg/ml 100ml inj. ONE (14:44)
[2021-08-04] MEDS: HYDROcodone/acetaminophen 5mg/325mg tablet PO PRN ×2 (16:14→22:12)
--- NOTE | 2021-08-04 18:20 | NUR ---
Patient in room PCU 3027. I have received report from Gina VALENCIA and had the opportunity to ask questions and assume patient care.
[2021-08-04] MEDS ORDERED: azithromycin 250mg tablet PO ONE (22:00)
[2021-08-04 22:02] LABS: MAGNESIUM 2.6 MG/DL (1.5-2.4); POTASSIUM 3.6 MMOL/L (3.5-5.1)
[2021-08-04] MEDS: pantoprazole 40MG/NS 100ML BAG 100 ML IV SCH (23:00)
[2021-08-05] MEDS: cefTRIAXone 1g/NS 100ml IVPB 100 ML IV SCH ×2 (00:47→09:01)
[2021-08-05 02:00] VITALS: BP 115/78
[2021-08-05] MEDS: potassium Cl 20mEq in NS 1,000 ML IV SCH ×2 (02:40→09:01)
[2021-08-05] MEDS: LORazepam 2 mg/ml vial IV PRN ×5 (03:03→20:44)
[2021-08-05] MEDS: HYDROcodone/acetaminophen 5mg/325mg tablet PO PRN ×3 (05:29→17:08)
[2021-08-05 06:00] VITALS: BP 120/83
[2021-08-05 06:11] LABS: BASOPHILS % (AUTO) 0.5 % (0-1); EOSINOPHILS # (AUTO) 0.1 X10'3 (0-0.9); EOSINOPHILS % (AUTO) 1.6 % (0-6); HEMATOCRIT 35.6 % (42.0-52.0); HEMOGLOBIN 12.2 g/dl (14.0-17.9); LYMPHOCYTES # (AUTO) 1.5 X10'3 (1.1-4.8); LYMPHOCYTES % (AUTO) 22.1 % (21-51); MEAN CORPUSCULAR HEMOGLOBIN 36.2 PG (27.0-31.0); MEAN CORPUSCULAR HGB CONC 34.2 g/dL (33.0-36.5); MEAN CORPUSCULAR VOLUME 105.8 FL (78-98); MEAN PLATELET VOLUME 8.8 FL (7.4-10.4); MONOCYTES # (AUTO) 0.7 X10'3 (0-0.9); MONOCYTES % (AUTO) 9.7 % (2-12); NEUTROPHILS # (AUTO) 4.5 X10'3 (1.8-7.7); NEUTROPHILS % (AUTO) 66.1 % (42-75); PLATELET COUNT 86 X10'3 (140-440); RED BLOOD COUNT 3.37 X10'6 (4.70-6.10); RED CELL DISTRIBUTION WIDTH 13.6 % (11.5-14.5); WHITE BLOOD COUNT 6.8 X10'3 (4.5-11.0)
[2021-08-05 06:20] LABS: ALANINE AMINOTRANSFERASE 56 U/L (12-78); ALBUMIN 1.8 G/DL (3.4-5.0); ALKALINE PHOSPHATASE 210 IU/L (46-116); ANION GAP 6 (8-16); ASPARTATE AMINO TRANSFERASE 149 U/L (10-37); BILIRUBIN,TOTAL 7.9 MG/DL (0.1-1.0); BLOOD UREA NITROGEN 3 MG/DL (7-18); BUN/CREATININE RATIO 5.2 (5.4-32.0); CALCIUM 7.1 MG/DL (8.5-10.1); CHLORIDE 101 MMOL/L (99-107); CREATININE 0.58 MG/DL (0.60-1.10); GLUCOSE 67 MG/DL (70-104); MAGNESIUM 1.8 MG/DL (1.5-2.4); SODIUM 133 MMOL/L (135-145); TOTAL CARBON DIOXIDE 25.8 MMOL/L (24-32); eGFR > 90 ML/MIN
[2021-08-05 06:25] LABS: ALBUMIN/GLOBULIN RATIO 0.6 (1.1-1.5); POTASSIUM 3.7 MMOL/L (3.5-5.1); TOTAL PROTEIN 4.9 G/DL (6.4-8.2)
--- NOTE | 2021-08-05 06:40 | NUR ---
Patient in room PCU 3027. I have received report from ERIK Owens and had the opportunity to ask questions and assume patient care.
--- NOTE | 2021-08-05 06:48 | NUR ---
Problems reprioritized. Patient report given, questions answered & plan of care reviewed with marko rn.
[2021-08-05] MEDS: docusate sod 100mg capsule PO SCH ×2 (06:49→20:00)
[2021-08-05] MEDS ORDERED: dextrose 50%-water 50ml dispensing syringe IV PRN ×2 (07:30)
[2021-08-05] MEDS ORDERED: insulin Lispro (HumaLOG) vial - multi-dose SQ SCH (07:30)
[2021-08-05] MEDS ORDERED: glucagon, human recombinant 1mg kit SUBCUT PRN (07:30)
[2021-08-05] MEDS ORDERED: DEXTROSE 15 GM of carb/4 tabs (each vial/BOTTLE has 4 tablets) PO PRN ×2 (07:30)
[2021-08-05] MEDS: K and/or MAG REPLACEMENT MC SCH ×2 (08:00→20:00)
[2021-08-05] MEDS: heparin, porcine 5000 units/ml vial SQ SCH (09:01)
[2021-08-05] MEDS: thiamine 100mg/ml 2ml inj. IV SCH (09:01)
[2021-08-05] MEDS: pantoprazole 40MG/NS 100ML BAG 100 ML IV SCH ×2 (09:01→19:59)
[2021-08-05 10:00] VITALS: BP 112/78
[2021-08-05] MEDS ORDERED: magnesium 2GM in 50ml NS 50 ML IV PRN (12:15)
[2021-08-05] MEDS ORDERED: POTASSIUM BICARB 20meq eff tab 20 MEQ TABLET.EFF PO PRN ×2 (12:15)
[2021-08-05] MEDS ORDERED: magnesium Cl slow-release 64mg tablet PO PRN (12:15)
[2021-08-05] MEDS: dextrose 5%-normal saline 1,000 ML IV SCH (12:15)
[2021-08-05 14:00] VITALS: BP 114/76
[2021-08-05 18:00] VITALS: BP 121/87
--- NOTE | 2021-08-05 18:20 | NUR ---
Problems reprioritized. Patient report given, questions answered & plan of care reviewed with ERIK Owens.
--- NOTE | 2021-08-05 18:30 | NUR ---
Problems reprioritized. Patient report given, questions answered & plan of care reviewed with ERIK Flores. Addendum: 08/05/21 at 1938 by Brit Holley RN Maria Ines, wrong patient
[2021-08-05] MEDS: LORazepam 1 MG tablet PO PRN (20:33)
[2021-08-05] MEDS ORDERED: insulin glargine (Lantus) pen - multi-dose SQ SCH (21:00)
[2021-08-05 22:00] VITALS: BP 117/83
[2021-08-05] MEDS ORDERED: ringers solution, lacted 1,000 ML IV ONE (22:35)
[2021-08-05] MEDS: morphine 2 MG/ML inj. syringe IV PRN (23:08)
[2021-08-06] MEDS: dextrose 5%-normal saline 1,000 ML IV SCH ×2 (01:35→08:30)
[2021-08-06 02:00] VITALS: BP 123/84
[2021-08-06] MEDS: LORazepam 1 MG tablet PO PRN (02:49)
[2021-08-06] MEDS: morphine 2 MG/ML inj. syringe IV PRN (04:13)
[2021-08-06 06:00] VITALS: BP 115/85
[2021-08-06 06:05] LABS: BASOPHILS % (AUTO) 0.8 % (0-1); EOSINOPHILS # (AUTO) 0.1 X10'3 (0-0.9); EOSINOPHILS % (AUTO) 2.4 % (0-6); HEMATOCRIT 35.3 % (42.0-52.0); LYMPHOCYTES # (AUTO) 1.5 X10'3 (1.1-4.8); LYMPHOCYTES % (AUTO) 28.1 % (21-51); MEAN CORPUSCULAR HEMOGLOBIN 36.3 PG (27.0-31.0); MEAN CORPUSCULAR HGB CONC 33.9 g/dL (33.0-36.5); MEAN CORPUSCULAR VOLUME 107.1 FL (78-98); MEAN PLATELET VOLUME 8.7 FL (7.4-10.4); MONOCYTES # (AUTO) 0.5 X10'3 (0-0.9); MONOCYTES % (AUTO) 10.3 % (2-12); NEUTROPHILS % (AUTO) 58.4 % (42-75); PLATELET COUNT 89 X10'3 (140-440); WHITE BLOOD COUNT 5.2 X10'3 (4.5-11.0)
--- NOTE | 2021-08-06 06:05 | NUR ---
AGREE WITH ASSMT COMPLETED BY Georgiana PRESTON LVN
[2021-08-06 06:20] LABS: ALANINE AMINOTRANSFERASE 44 U/L (12-78); ALBUMIN 1.7 G/DL (3.4-5.0); ALBUMIN/GLOBULIN RATIO 0.5 (1.1-1.5); ALKALINE PHOSPHATASE 198 IU/L (46-116); ASPARTATE AMINO TRANSFERASE 106 U/L (10-37); BILIRUBIN,TOTAL 3.7 MG/DL (0.1-1.0); BLOOD UREA NITROGEN 2 MG/DL (7-18); BUN/CREATININE RATIO 3.6 (5.4-32.0); CALCIUM 7.5 MG/DL (8.5-10.1); CHLORIDE 105 MMOL/L (99-107); CREATININE 0.55 MG/DL (0.60-1.10); GLUCOSE 72 MG/DL (70-104); MAGNESIUM 1.4 MG/DL (1.5-2.4); POTASSIUM 3.6 MMOL/L (3.5-5.1); SODIUM 135 MMOL/L (135-145); TOTAL PROTEIN 4.8 G/DL (6.4-8.2); eGFR > 90 ML/MIN
--- NOTE | 2021-08-06 06:30 | NUR ---
Patient in room PCU 3027. I have received report from ERIK Owens and had the opportunity to ask questions and assume patient care.
[2021-08-06 06:36] LABS: ANION GAP 4 (8-16)
--- NOTE | 2021-08-06 06:42 | NUR ---
Problems reprioritized. Patient report given, questions answered & plan of care reviewed with marko rn.
[2021-08-06] MEDS: K and/or MAG REPLACEMENT MC SCH (07:49)
[2021-08-06] MEDS ORDERED: morphine 2 MG/ML inj. syringe IV PRN (08:00)
[2021-08-06] MEDS: docusate sod 100mg capsule PO SCH (08:00)
[2021-08-06] MEDS: thiamine 100mg/ml 2ml inj. IV SCH (08:29)
[2021-08-06] MEDS: pantoprazole 40MG/NS 100ML BAG 100 ML IV SCH (08:30)
[2021-08-06] MEDS: cefTRIAXone 1g/NS 100ml IVPB 100 ML IV SCH (08:30)
[2021-08-06 10:00] VITALS: BP 115/85
[2021-08-06] MEDS: HYDROcodone/acetaminophen 5mg/325mg tablet PO PRN (11:15)
[2021-08-06] MEDS ORDERED: THIA50TA10 PO (12:03)
[2021-08-06] MEDS ORDERED: LACT1CAP26 PO (12:03)
[2021-08-06] MEDS ORDERED: PANT40TA54 PO (12:03)
[2021-08-06] MEDS ORDERED: CEFD300C3 PO (12:03)
--- NOTE | 2021-08-06 14:10 | NUR ---
Pt left before speaking to him about the fact that MD has DC'd him & to get DC inst ready. Entered pt's room & found IV, tip intact, on bed along w/tele monitor. Attempted to call pt, but no phone # in chart or on facesheet for pt. Called pt's brother, Yohannes, whom stated he picked pt up. Informed him that pt has RX's @ [facility]. Yohannes to inform pt. Charge nurse & MD notified.
[2021-08-06] MEDS ORDERED: pantoprazole 40mg Tablet.DR PO SCH (20:00)
[2021-08-07] MEDS ORDERED: LORazepam 1 MG tablet PO PRN (20:45)
== END 2021-08-06 14:11 | disposition home or self-care (01) | DRG 241 ==
LOC: ER 18:14 → ED HOLD 20:43 → PCU 3S 22:25
PROVIDERS: ADMIT Internal Medicine; ATTEND Family Medicine
PROC: BW211ZZ Computerized Tomography (CT Scan) of Abdomen and Pelvis using Low Osmolar Contrast (ICD-10-PCS; principal; 2021-08-04)
DX: K29.00 Acute gastritis without bleeding (principal); E87.2 Acidosis; R64 Cachexia; K70.10 Alcoholic hepatitis without ascites; N39.0 Urinary tract infection, site not specified; K21.9 Gastro-esophageal reflux disease without esophagitis; E83.42 Hypomagnesemia; E86.0 Dehydration; E87.6 Hypokalemia; F10.220 Alcohol dependence with intoxication, uncomplicated; F10.239 Alcohol dependence with withdrawal, unspecified; F17.200 Nicotine dependence, unspecified, uncomplicated; Z88.2 Allergy status to sulfonamides; Z68.1 Body mass index [BMI] 19.9 or less, adult; Z79.899 Other long term (current) drug therapy
CPT/HCPCS: 36415; 74177; 80053; 80305; 80320; 81001; 82948; 83605; 83690; 83735; 84100; 84132; 84145; 85025; 85610; 87081; 87088; 93005; 96361; 96372; 96374; 96375; 99285; A6258; C9113; G0378; J0696; J1644; J1815; J2060; J2270; J2405; J3411; J3475; J3480; J3490; J7030; J7042; J7120; Q9967